=== PATIENT | female | born 1955 | race Caucasian/White ===

== ENCOUNTER 2018-05-03 15:18 | Emergency (ER) | payer MEDICARE, MEDICAID ==
[~2018-05-03] VITALS: Ht 172.7 cm; Wt 64.2 kg
[~2018-05-03 15:18] MED LIST: ALBU18HF2 INH; ALBU8.5H8 IH; BUDE90AE IH; CLON0.5T12 PO; CYCL-1 PO; ESOM40CA30 PO; FENT1PAT10 TP; GUAI100L97 PO; HYDR-565 PO; LEVO100T9 PO; MIRT30TA8 PO; PRE5T CORPAK; QUET400T PO; QUET50TA PO; TRAM50TA2 PO; [UNRECOGNIZED DRUG - CODE] IM
[2018-05-03 15:30] VITALS: BP 146/74
[2018-05-03] MEDS ORDERED: CYCL5TAB14 PO (16:09)
== END 2018-05-03 16:18 | disposition home or self-care (01) ==
LOC: ER 15:18
DX: M54.2 Cervicalgia (principal); J44.9 Chronic obstructive pulmonary disease, unspecified; Z90.49 Acquired absence of other specified parts of digestive tract; Z90.710 Acquired absence of both cervix and uterus; Z56.0 Unemployment, unspecified; Z88.6 Allergy status to analgesic agent
CPT/HCPCS: 99283

== ENCOUNTER 2018-12-12 19:59 | Inpatient (IN) | payer MEDICARE, MEDICAID ==
[~2018-12-12] VITALS: Ht 172.7 cm; Wt 64.5 kg
[~2018-12-12 19:59] MED LIST changes: +CYCL5TAB14 PO; -ESOM40CA30 PO; +ESOM40CA49 PO; +HYDR-4353 PO; -HYDR-565 PO
[2018-12-12 20:51] LABS: BASOPHILS % (AUTO) 0.3 % (0-1); EOSINOPHILS # (AUTO) 0.1 X10'3 (0-0.9); EOSINOPHILS % (AUTO) 0.6 % (0-6); HEMATOCRIT 40.5 % (35.0-45.0); HEMOGLOBIN 13.6 g/dl (12.0-16.0); LYMPHOCYTES # (AUTO) 2.2 X10'3 (1.1-4.8); LYMPHOCYTES % (AUTO) 22.7 % (21-51); MEAN CORPUSCULAR HEMOGLOBIN 31.5 PG (27.0-31.0); MEAN CORPUSCULAR HGB CONC 33.6 g/dL (33.0-36.5); MEAN CORPUSCULAR VOLUME 93.8 FL (78-98); MEAN PLATELET VOLUME 8.4 FL (7.4-10.4); MONOCYTES # (AUTO) 0.5 X10'3 (0-0.9); MONOCYTES % (AUTO) 5.4 % (2-12); NEUTROPHILS # (AUTO) 6.8 X10'3 (1.8-7.7); PLATELET COUNT 274 X10'3 (140-440); RED BLOOD COUNT 4.32 X10'6 (4.20-5.60); RED CELL DISTRIBUTION WIDTH 13.7 % (11.5-14.5); WHITE BLOOD COUNT 9.5 X10'3 (4.5-11.0)
[2018-12-12 20:52] LABS: CLARITY,URINE CLOUDY (Clear); COLOR,URINE YELLOW (Yellow); GLUCOSE, URINE NEGATIVE (Neg); KETONES,URINE TRACE mg/dl (Neg); LEUKOCYTE ESTERASE ,URINE SMALL (Neg); NITRITES, URINE POSITIVE (Neg); OCCULT BLOOD,URINE NEGATIVE (Neg); PROTEIN,URINE 30 mg/dl (Neg); UROBILINOGEN,URINE 0.2 E.U/dL (0.2-1.0)
[2018-12-12 20:53] LABS: UA COLLECTION TYPE CLN CATCH MIDSTREAM
[2018-12-12 21:01] LABS: BACTERIA,URINE 4+ /HPF (Neg); MUCUS STRANDS NONE SEEN /LPF (Neg); RBC,URINE NONE SEEN /HPF (0-2); SQUAMOUS EPITHELIAL CELL,UR MANY /LPF (FEW); WBC,URINE 30-50 /HPF (0-4)
[2018-12-12 21:12] LABS: ALANINE AMINOTRANSFERASE 14 U/L (12-78); ALBUMIN 3.5 G/DL (3.4-5.0); ALBUMIN/GLOBULIN RATIO 0.9 (1.1-1.5); ALKALINE PHOSPHATASE 112 IU/L (46-116); ANION GAP 9 (8-16); ASPARTATE AMINO TRANSFERASE 14 U/L (10-37); BILIRUBIN,TOTAL 0.3 MG/DL (0.1-1.0); BLOOD UREA NITROGEN 12 MG/DL (7-18); BUN/CREATININE RATIO 12.6 (6.6-38.0); CHLORIDE 102 MMOL/L (99-107); CREATININE 0.95 MG/DL (0.40-0.90); GLUCOSE 138 MG/DL (70-104); POTASSIUM 3.6 MMOL/L (3.5-5.1); SODIUM 138 MMOL/L (135-145); TOTAL CARBON DIOXIDE 27.2 MMOL/L (24-32); TOTAL PROTEIN 7.6 G/DL (6.4-8.2); eGFR 60 ML/MIN
[2018-12-12] MEDS ORDERED: ondansetron/PF 4mg/2ml inj IV ONE (21:45)
[2018-12-12] MEDS ORDERED: normal saline 1000ML IV soln IVB ONE (21:45)
[2018-12-12] MEDS ORDERED: fentaNYL/PF 50MCG/1 ML 2ML syringe IV ONE (23:00)
[2018-12-12] MEDS ORDERED: UMEC1DIS (23:11)
[2018-12-12] MEDS ORDERED: CLON-529 PO (23:11)
[2018-12-12] MEDS ORDERED: PRAZ2CAP2 PO (23:11)
[2018-12-12] MEDS ORDERED: ATOR10TA87 PO (23:11)
--- NOTE | 2018-12-12 23:18 | NUR ---
SPOKE TO DR BAKER. NO NG TUBE EXPECTED DUE TO NO N/V
--- NOTE | 2018-12-12 23:40 | NUR ---
SPOKE TO DR BAKER, NO ANTIBIOTICS EXPECTED DUE TO DIRTY CATCH
[2018-12-13] MEDS ORDERED: HYDROcodone/acetaminophen 5mg/325mg tablet PO PRN
[2018-12-13] MEDS ORDERED: magnesium hydroxide 30ml (MOM) UD suspension PO PRN
[2018-12-13] MEDS ORDERED: acetaminophen 325mg tablet PO PRN ×2
[2018-12-13] MEDS ORDERED: HYDROmorphone 2mg/ml vial IV PRN
[2018-12-13] MEDS ORDERED: mag hydrox/Alum hydrox/simeth 30ml oral suspension PO PRN
[2018-12-13] MEDS ORDERED: HYDROcodone/acetaminophen 10/325mg tab PO PRN
[2018-12-13] MEDS ORDERED: albuterol 2.5 MG/3 ML nebule NEB PRN (00:05)
[2018-12-13] MEDS: piperacillin/tazo 4.5gm/100ml 100 ML IV SCH ×4 (00:13→23:23)
[2018-12-13] MEDS: normal saline 1000ml 1,000 ML IV SCH ×4 (00:13→23:30)
[2018-12-13] MEDS ORDERED: HYDROmorphone 1 mg/ml syringe IV ONE (01:00)
[2018-12-13] MEDS ORDERED: quetiapine 100mg tablet PO STA (01:09)
--- NOTE | 2018-12-13 01:10 | NUR ---
verbal from dr barrios for one time dose of night meds
[2018-12-13] MEDS: ondansetron/PF 4mg/2ml inj IV PRN ×2 (01:15→20:38)
[2018-12-13] MEDS: clonazePAM 0.5mg tablet PO PRN ×2 (01:16→13:48)
--- NOTE | 2018-12-13 04:59 | NUR ---
Received report from Ludwin DE LA GARZA RN. Patient to follow shortly.
--- NOTE | 2018-12-13 05:10 | NUR ---
Patient arrived to floor via W/C. Situated in bed and oriented to room.
[2018-12-13 05:30] VITALS: BP 101/49
[2018-12-13 06:20] LABS: BASOPHILS % (AUTO) 0.5 % (0-1); EOSINOPHILS # (AUTO) 0.1 X10'3 (0-0.9); EOSINOPHILS % (AUTO) 0.8 % (0-6); HEMATOCRIT 38.1 % (35.0-45.0); HEMOGLOBIN 12.8 g/dl (12.0-16.0); LYMPHOCYTES # (AUTO) 1.6 X10'3 (1.1-4.8); LYMPHOCYTES % (AUTO) 22.4 % (21-51); MEAN CORPUSCULAR HEMOGLOBIN 31.9 PG (27.0-31.0); MEAN CORPUSCULAR HGB CONC 33.6 g/dL (33.0-36.5); MEAN CORPUSCULAR VOLUME 94.9 FL (78-98); MEAN PLATELET VOLUME 8.3 FL (7.4-10.4); MONOCYTES # (AUTO) 0.5 X10'3 (0-0.9); MONOCYTES % (AUTO) 7.5 % (2-12); NEUTROPHILS # (AUTO) 4.8 X10'3 (1.8-7.7); NEUTROPHILS % (AUTO) 68.8 % (42-75); PLATELET COUNT 227 X10'3 (140-440); RED BLOOD COUNT 4.01 X10'6 (4.20-5.60); RED CELL DISTRIBUTION WIDTH 14.1 % (11.5-14.5); WHITE BLOOD COUNT 6.9 X10'3 (4.5-11.0)
[2018-12-13 06:36] LABS: ANION GAP 6 (8-16); BLOOD UREA NITROGEN 11 MG/DL (7-18); BUN/CREATININE RATIO 13.6 (6.6-38.0); CALCIUM 8.2 MG/DL (8.5-10.1); CHLORIDE 106 MMOL/L (99-107); CREATININE 0.81 MG/DL (0.40-0.90); GLUCOSE 108 MG/DL (70-104); MAGNESIUM 1.9 MG/DL (1.5-2.4); POTASSIUM 3.9 MMOL/L (3.5-5.1); SODIUM 140 MMOL/L (135-145); TOTAL CARBON DIOXIDE 27.7 MMOL/L (24-32); eGFR 72 ML/MIN
--- NOTE | 2018-12-13 06:41 | NUR ---
Patient in room [facility]. I have received report from KELSEA Demarco and had the opportunity to ask questions and assume patient care.
--- NOTE | 2018-12-13 06:54 | NUR ---
Problems reprioritized. Patient report given, questions answered & plan of care reviewed with Lisa ENAMORADO.
[2018-12-13 07:20] VITALS: BP 102/54
[2018-12-13] MEDS ORDERED: enoxaparin 40mg/0.4ml syringe SUBCUT SCH (08:00)
[2018-12-13] MEDS ORDERED: quetiapine 100mg tablet PO SCH ×2 (08:00→21:00)
[2018-12-13] MEDS ORDERED: levoTHYROXINE 100mcg tablet PO SCH (08:00)
[2018-12-13] MEDS ORDERED: atorvastatin 10mg tablet PO SCH (08:00)
[2018-12-13] MEDS ORDERED: OXYGEN INH (08:38)
[2018-12-13] MEDS ORDERED: HYDROmorphone inj. 0.5 MG/0.5 ML DISP.SYRIN IV PRN (09:10)
[2018-12-13] MEDS: cyclobenzaprine 10mg tablet PO SCH ×3 (09:16→20:38)
[2018-12-13 11:00] VITALS: BP 116/55
[2018-12-13] MEDS: HYDROmorphone inj. 0.5 MG/0.5 ML DISP.SYRIN IV PRN ×3 (13:37→22:03)
[2018-12-13] MEDS ORDERED: Permethrin Cream 60gm TP ONE (14:00)
--- NOTE | 2018-12-13 18:46 | NUR ---
Problems reprioritized. Patient report given, questions answered & plan of care reviewed with KELSEA Aguirre.
[2018-12-13 18:50] VITALS: BP 137/91
[2018-12-13] MEDS ORDERED: lactobacillus rhamnosus 10,000 MMU CELLS/CAPSULE PO SCH (20:00)
[2018-12-13] MEDS ORDERED: diatr meglu/diatrizoate 30ml oral sol.-(3 dose) bottle PO SCH (21:00)
[2018-12-13] MEDS ORDERED: prazosin 1mg capsule PO SCH (21:00)
[2018-12-13] MEDS ORDERED: mirtazapine 15mg tablet PO SCH (21:00)
[2018-12-13] MEDS ORDERED: cloNIDine 0.1 mg tablet PO SCH (21:00)
[2018-12-14] VITALS: BP 136/72
[2018-12-14] MEDS: HYDROmorphone inj. 0.5 MG/0.5 ML DISP.SYRIN IV PRN (03:17)
[2018-12-14 05:57] LABS: BASOPHILS % (AUTO) 0.6 % (0-1); EOSINOPHILS # (AUTO) 0.1 X10'3 (0-0.9); EOSINOPHILS % (AUTO) 0.7 % (0-6); HEMATOCRIT 37.7 % (35.0-45.0); HEMOGLOBIN 12.8 g/dl (12.0-16.0); LYMPHOCYTES # (AUTO) 1.2 X10'3 (1.1-4.8); LYMPHOCYTES % (AUTO) 14.2 % (21-51); MEAN CORPUSCULAR HEMOGLOBIN 32.1 PG (27.0-31.0); MEAN CORPUSCULAR HGB CONC 33.8 g/dL (33.0-36.5); MEAN CORPUSCULAR VOLUME 94.9 FL (78-98); MEAN PLATELET VOLUME 8.7 FL (7.4-10.4); MONOCYTES # (AUTO) 0.6 X10'3 (0-0.9); MONOCYTES % (AUTO) 6.9 % (2-12); NEUTROPHILS # (AUTO) 6.3 X10'3 (1.8-7.7); NEUTROPHILS % (AUTO) 77.6 % (42-75); PLATELET COUNT 234 X10'3 (140-440); RED BLOOD COUNT 3.97 X10'6 (4.20-5.60); WHITE BLOOD COUNT 8.1 X10'3 (4.5-11.0)
--- NOTE | 2018-12-14 06:08 | NUR ---
Patient in room [facility]. I have received report from KELSEA Aguirre and had the opportunity to ask questions and assume patient care.
--- NOTE | 2018-12-14 06:19 | NUR ---
Problems reprioritized. Patient report given, questions answered & plan of care reviewed with LELO. Addendum: 12/14/18 at 0619 by Salazar Núñez RN Amended: Links added.
[2018-12-14 06:24] LABS: ANION GAP 11 (8-16); BLOOD UREA NITROGEN 10 MG/DL (7-18); BUN/CREATININE RATIO 12.8 (6.6-38.0); CALCIUM 8.2 MG/DL (8.5-10.1); CHLORIDE 103 MMOL/L (99-107); CREATININE 0.78 MG/DL (0.40-0.90); GLUCOSE 91 MG/DL (70-104); MAGNESIUM 1.9 MG/DL (1.5-2.4); POTASSIUM 3.7 MMOL/L (3.5-5.1); SODIUM 138 MMOL/L (135-145); TOTAL CARBON DIOXIDE 24.3 MMOL/L (24-32); eGFR 75 ML/MIN
--- NOTE | 2018-12-14 06:53 | NUR ---
Patient left AMA. Dr. Holland informed. NG tube and PIV removed with cannula intact. Patient stated that she "feels the NG tube did the trick and she is ready to go." Patient was educated on the importance of staying due to unfinished tests such as her UA and she has a CT scheduled for today. Patient stated that those won't be needed because she is feeling fine. Patient also stated, "I won't need anymore pain medication because I am just sore now, it isn't cramping anymore. Patient was alert and oriented at time of leaving.
[2018-12-14] MEDS ORDERED: levoTHYROXINE 112mcg tablet PO SCH (08:00)
[2018-12-14] MEDS ORDERED: pneumococcal 23-VAL P-sac vacc 25 mcg/0.5ml vial IMVAC ONE (10:00)
[2018-12-20] MEDS ORDERED: Permethrin Cream 60gm TP PRN (10:00)
== END 2018-12-14 06:54 | disposition left against medical advice (07) | DRG 389 ==
LOC: ER 20:00 → SUR 3N 12-13 05:40 → CMPBEDREQ 12-13 05:54
PROVIDERS: ADMIT Hospitalist; ATTEND Family Medicine
DX: K56.609 Unspecified intestinal obstruction, unspecified as to partial versus complete obstruction (principal); N39.0 Urinary tract infection, site not specified; I10 Essential (primary) hypertension; E03.9 Hypothyroidism, unspecified; E78.5 Hyperlipidemia, unspecified; J45.909 Unspecified asthma, uncomplicated; F17.200 Nicotine dependence, unspecified, uncomplicated; J43.9 Emphysema, unspecified; F41.9 Anxiety disorder, unspecified; F32.9 Major depressive disorder, single episode, unspecified; Z53.21 Procedure and treatment not carried out due to patient leaving prior to being seen by health care provider; Z90.710 Acquired absence of both cervix and uterus; Z90.49 Acquired absence of other specified parts of digestive tract; Z56.0 Unemployment, unspecified; Z88.5 Allergy status to narcotic agent; Z79.899 Other long term (current) drug therapy; Z85.41 Personal history of malignant neoplasm of cervix uteri
CPT/HCPCS: 36415; 74176; 80048; 80053; 81001; 83735; 84443; 85025; 85610; 87070; 87088; 94760; 96361; 96374; 96375; 99285; G0378; J1170; J1650; J2405; J2543; J3010; J7030; Q9963

== ENCOUNTER 2019-03-09 06:17 | Emergency (ER) | payer MEDICARE, MEDICAID ==
[~2019-03-09] VITALS: Ht 172.7 cm; Wt 65.0 kg
[~2019-03-09 06:17] MED LIST changes: -ALBU8.5H8 IH; +ATOR10TA87 PO; -BUDE90AE IH; +CLON-529 PO; -CYCL5TAB14 PO; -ESOM40CA49 PO; -FENT1PAT10 TP; -GUAI100L97 PO; -HYDR-4353 PO; +OXYGEN INH; +PRAZ2CAP2 PO; -PRE5T CORPAK; -TRAM50TA2 PO; +UMEC1DIS; -[UNRECOGNIZED DRUG - CODE] IM
[2019-03-09] MEDS ORDERED: methylPREDNISolone sod succ 125mg/2ml vial IV ONE (06:35)
[2019-03-09] MEDS ORDERED: ipratropium/albuterol 3ml nebule NEB ONE (06:35)
[2019-03-09 07:13] LABS: BASOPHILS % (AUTO) 0.3 % (0-1); EOSINOPHILS % (AUTO) 0.6 % (0-6); HEMATOCRIT 45.5 % (35.0-45.0); HEMOGLOBIN 15.1 g/dl (12.0-16.0); LYMPHOCYTES # (AUTO) 1.2 X10'3 (1.1-4.8); LYMPHOCYTES % (AUTO) 14.9 % (21-51); MEAN CORPUSCULAR HEMOGLOBIN 31.8 PG (27.0-31.0); MEAN CORPUSCULAR HGB CONC 33.2 g/dL (33.0-36.5); MEAN CORPUSCULAR VOLUME 95.8 FL (78-98); MEAN PLATELET VOLUME 8.6 FL (7.4-10.4); MONOCYTES # (AUTO) 0.7 X10'3 (0-0.9); MONOCYTES % (AUTO) 8.8 % (2-12); NEUTROPHILS # (AUTO) 6.2 X10'3 (1.8-7.7); NEUTROPHILS % (AUTO) 75.4 % (42-75); PLATELET COUNT 289 X10'3 (140-440); RED BLOOD COUNT 4.75 X10'6 (4.20-5.60); RED CELL DISTRIBUTION WIDTH 14.4 % (11.5-14.5); WHITE BLOOD COUNT 8.3 X10'3 (4.5-11.0)
[2019-03-09] MEDS ORDERED: methylPREDNISolone sod succ 125mg/2ml vial IM ONE (07:15)
[2019-03-09 07:31] LABS: ALANINE AMINOTRANSFERASE 14 U/L (12-78); ALBUMIN 3.9 G/DL (3.4-5.0); ALBUMIN/GLOBULIN RATIO 0.8 (1.1-1.5); ALKALINE PHOSPHATASE 115 IU/L (46-116); ANION GAP 9 (8-16); ASPARTATE AMINO TRANSFERASE 10 U/L (10-37); BILIRUBIN,TOTAL 0.2 MG/DL (0.1-1.0); BLOOD UREA NITROGEN 12 MG/DL (7-18); BUN/CREATININE RATIO 16.7 (6.6-38.0); CALCIUM 9.5 MG/DL (8.5-10.1); CHLORIDE 104 MMOL/L (99-107); CREATININE 0.72 MG/DL (0.40-0.90); GLUCOSE 108 MG/DL (70-104); POTASSIUM 4.2 MMOL/L (3.5-5.1); SODIUM 141 MMOL/L (135-145); TOTAL PROTEIN 8.8 G/DL (6.4-8.2); eGFR 82 ML/MIN
--- NOTE | 2019-03-09 07:50 | NUR ---
RT to room, paged over head by staff.
[2019-03-09 07:56] LABS: PARTIAL THROMBOPLASTIN TIME 30 SECONDS (22-32)
[2019-03-09] MEDS ORDERED: ALBU8.5H8 INH (08:16)
[2019-03-09] MEDS ORDERED: PRED20TA PO (08:16)
[2019-03-09] MEDS ORDERED: LEVO750T21 PO (08:16)
[2019-03-09 08:19] VITALS: BP 130/112
== END 2019-03-09 08:30 | disposition home or self-care (01) ==
LOC: ER 06:18
DX: J44.1 Chronic obstructive pulmonary disease with (acute) exacerbation (principal); J20.9 Acute bronchitis, unspecified; F41.9 Anxiety disorder, unspecified; F32.9 Major depressive disorder, single episode, unspecified; F17.200 Nicotine dependence, unspecified, uncomplicated; Z56.0 Unemployment, unspecified; Z85.89 Personal history of malignant neoplasm of other organs and systems; Z90.49 Acquired absence of other specified parts of digestive tract; Z90.710 Acquired absence of both cervix and uterus; Z98.890 Other specified postprocedural states; Z88.5 Allergy status to narcotic agent; Z79.899 Other long term (current) drug therapy
CPT/HCPCS: 36415; 71045; 80053; 83605; 83880; 84484; 85025; 85610; 85730; 87040; 93005; 94640; 96372; 99284; J2930

== ENCOUNTER 2019-05-26 10:27 | Emergency (ER) | payer MEDICARE, MEDICAID ==
[~2019-05-26] VITALS: Ht 172.7 cm; Wt 64.0 kg
[~2019-05-26 10:27] MED LIST changes: +ALBU8.5H8 INH
[2019-05-26 10:34] VITALS: BP 139/74
[2019-05-26] MEDS ORDERED: IBUP-1984 PO (11:41)
[2019-05-26] MEDS ORDERED: CYCL-1 PO (11:41)
== END 2019-05-26 12:03 | disposition home or self-care (01) ==
LOC: ER 10:28
DX: S16.1XXA Strain of muscle, fascia and tendon at neck level, initial encounter (principal); J44.9 Chronic obstructive pulmonary disease, unspecified; F41.9 Anxiety disorder, unspecified; F32.9 Major depressive disorder, single episode, unspecified; F17.200 Nicotine dependence, unspecified, uncomplicated; Z90.49 Acquired absence of other specified parts of digestive tract; Z90.710 Acquired absence of both cervix and uterus; Z98.890 Other specified postprocedural states; Z56.0 Unemployment, unspecified; Z88.5 Allergy status to narcotic agent; Z79.899 Other long term (current) drug therapy; X58.XXXA Exposure to other specified factors, initial encounter; Y93.89 Activity, other specified; Y92.89 Other specified places as the place of occurrence of the external cause; Y99.8 Other external cause status
CPT/HCPCS: 99283

== ENCOUNTER 2019-08-31 22:54 | Inpatient (IN) | payer MEDICARE, MEDICAID ==
[~2019-08-31] VITALS: Ht 172.7 cm; Wt 68.1 kg
[~2019-08-31 22:54] MED LIST changes: -CLON0.5T12 PO; +CLON0.5T4 PO
[2019-08-31] MEDS ORDERED: morphine 4 MG/ML inj SYRINge IV ONE (23:05)
[2019-08-31] MEDS ORDERED: ondansetron/PF 4mg/2ml inj IV ONE (23:05)
[2019-08-31] MEDS ORDERED: normal saline 1000ml 1,000 ML IV ONE (23:15)
[2019-08-31 23:25] LABS: BASOPHILS % (AUTO) 0.2 % (0-1); EOSINOPHILS # (AUTO) 0.1 X10'3 (0-0.9); EOSINOPHILS % (AUTO) 0.6 % (0-6); HEMATOCRIT 41.4 % (35.0-45.0); LYMPHOCYTES # (AUTO) 2.6 X10'3 (1.1-4.8); LYMPHOCYTES % (AUTO) 17.4 % (21-51); MEAN CORPUSCULAR HEMOGLOBIN 31.5 PG (27.0-31.0); MEAN CORPUSCULAR HGB CONC 33.9 g/dL (33.0-36.5); MEAN PLATELET VOLUME 8.3 FL (7.4-10.4); MONOCYTES # (AUTO) 0.7 X10'3 (0-0.9); MONOCYTES % (AUTO) 5.1 % (2-12); NEUTROPHILS # (AUTO) 11.3 X10'3 (1.8-7.7); NEUTROPHILS % (AUTO) 76.7 % (42-75); PLATELET COUNT 309 X10'3 (140-440); RED BLOOD COUNT 4.46 X10'6 (4.20-5.60); RED CELL DISTRIBUTION WIDTH 14.4 % (11.5-14.5); WHITE BLOOD COUNT 14.8 X10'3 (4.5-11.0)
[2019-08-31 23:37] LABS: ALANINE AMINOTRANSFERASE 18 U/L (12-78); ALBUMIN 3.7 G/DL (3.4-5.0); ALBUMIN/GLOBULIN RATIO 0.9 (1.1-1.5); ALKALINE PHOSPHATASE 118 IU/L (46-116); ANION GAP 4 (8-16); ASPARTATE AMINO TRANSFERASE 10 U/L (10-37); BILIRUBIN,TOTAL 0.2 MG/DL (0.1-1.0); BLOOD UREA NITROGEN 20 MG/DL (7-18); BUN/CREATININE RATIO 19.2 (6.6-38.0); CALCIUM 8.9 MG/DL (8.5-10.1); CHLORIDE 103 MMOL/L (99-107); CREATININE 1.04 MG/DL (0.40-0.90); GLUCOSE 143 MG/DL (70-104); LIPASE 121 U/L (73-393); POTASSIUM 3.9 MMOL/L (3.5-5.1); SODIUM 139 MMOL/L (135-145); eGFR 54 ML/MIN
[2019-09-01 00:23] LABS: URINE HCG NEGATIVE (NEG)
[2019-09-01] MEDS ORDERED: piperacillin/tazo 3.375gm/50ml 50 ML IV ONE (00:35)
[2019-09-01] MEDS ORDERED: morphine 4 MG/ML inj SYRINge IV ONE (00:35)
[2019-09-01] MEDS ORDERED: LIDOcaine 2% 10ml TOPICAL JELLY (Urojet) MM ONE (00:45)
[2019-09-01 00:55] LABS: CLARITY,URINE SLIGHTLY CLOUDY (Clear); COLOR,URINE YELLOW (Yellow); GLUCOSE, URINE NEGATIVE (Neg); KETONES,URINE NEGATIVE (Neg); LEUKOCYTE ESTERASE ,URINE SMALL (Neg); NITRITES, URINE NEGATIVE (Neg); OCCULT BLOOD,URINE TRACE-INTACT (Neg); PROTEIN,URINE NEGATIVE (Neg); UA COLLECTION TYPE CLN CATCH MIDSTREAM; UROBILINOGEN,URINE 0.2 E.U/dL (0.2-1.0)
[2019-09-01 00:58] LABS: BACTERIA,URINE 1+ /HPF (Neg); MUCUS STRANDS MODERATE /LPF (Neg); RBC,URINE 0-2 /HPF (0-2); SQUAMOUS EPITHELIAL CELL,UR MODERATE /LPF (FEW)
[2019-09-01] MEDS ORDERED: magnesium 2GM in 50ml NS 50 ML IV PRN (01:20)
[2019-09-01] MEDS ORDERED: potassium Cl 20 mEq SR tablet PO PRN ×2 (01:20)
[2019-09-01] MEDS ORDERED: normal saline 1000ml 1,000 ML IV SCH (01:20)
[2019-09-01] MEDS ORDERED: potassium CL 10mEq/100ml bag 100 ML IV PRN ×2 (01:20)
[2019-09-01] MEDS ORDERED: magnesium 4gm in 100ml NS 100 ML IV PRN (01:20)
[2019-09-01] MEDS ORDERED: magnesium Cl slow-release 64mg tablet PO PRN (01:20)
[2019-09-01] MEDS ORDERED: ondansetron/PF 4mg/2ml inj IV PRN (01:20)
[2019-09-01] MEDS: morphine 2 MG/ML inj. syringe IV PRN ×2 (03:40→08:09)
[2019-09-01 05:30] VITALS: BP 144/60
--- NOTE | 2019-09-01 06:10 | NUR ---
Report given Mariama ALANIS
--- NOTE | 2019-09-01 06:10 | NUR ---
Patient in room [facility]. I have received report from Krystal Villaseñor RN and had the opportunity to ask questions and assume patient care.
--- NOTE | 2019-09-01 07:07 | NUR ---
Paged Dr. Dooley for something extra for nausea and vomiting. I replaced patient NG suction canister, it seems to be working but patient vomiting around NG tube. Addendum: 09/01/19 at 9349 by Brenda Fierro RN DISREGARD MESSAGE
--- NOTE | 2019-09-01 07:26 | NUR ---
Paged Dr. Hinkle for nausea meds
[2019-09-01] MEDS ORDERED: proCHLORperazine 10 MG/2 ml inj IV PRN (07:35)
[2019-09-01] MEDS ORDERED: proCHLORperazine 10 MG/2 ml inj IV ONE (07:35)
[2019-09-01] MEDS ORDERED: CefTRIAXone/D5W-Rocephin 1gm 50 ML IV SCH (08:00)
[2019-09-01] MEDS ORDERED: K and/or MAG REPLACEMENT MC SCH (08:00)
[2019-09-01] MEDS ORDERED: normal saline 500ml IV soln 1,000 ML IV ONE (09:15)
[2019-09-01 10:00] VITALS: BP 126/55
[2019-09-01 10:45] LABS: BASOPHILS # (AUTO) 0.1 X10'3 (0-0.2); BASOPHILS % (AUTO) 0.4 % (0-1); EOSINOPHILS % (AUTO) 0.3 % (0-6); HEMATOCRIT 38.2 % (35.0-45.0); LYMPHOCYTES # (AUTO) 1.8 X10'3 (1.1-4.8); LYMPHOCYTES % (AUTO) 12.6 % (21-51); MEAN CORPUSCULAR HEMOGLOBIN 31.4 PG (27.0-31.0); MEAN CORPUSCULAR VOLUME 92.3 FL (78-98); MEAN PLATELET VOLUME 8.4 FL (7.4-10.4); MONOCYTES # (AUTO) 0.8 X10'3 (0-0.9); MONOCYTES % (AUTO) 5.4 % (2-12); NEUTROPHILS # (AUTO) 11.7 X10'3 (1.8-7.7); NEUTROPHILS % (AUTO) 81.3 % (42-75); PLATELET COUNT 286 X10'3 (140-440); RED BLOOD COUNT 4.15 X10'6 (4.20-5.60); RED CELL DISTRIBUTION WIDTH 14.1 % (11.5-14.5); WHITE BLOOD COUNT 14.4 X10'3 (4.5-11.0)
--- NOTE | 2019-09-01 10:48 | NUR ---
PAGER ID: [phone] MESSAGE: Patient Amaya Cunningham said she is going to leave ama right now and wants the ng tube out. Mariama [phone] (102 character message out of a maximum of [phone])
[2019-09-01 10:59] LABS: ALANINE AMINOTRANSFERASE 35 U/L (12-78); ALBUMIN 3.1 G/DL (3.4-5.0); ALBUMIN/GLOBULIN RATIO 0.8 (1.1-1.5); ALKALINE PHOSPHATASE 134 IU/L (46-116); ANION GAP 6 (8-16); ASPARTATE AMINO TRANSFERASE 33 U/L (10-37); BILIRUBIN,TOTAL 0.2 MG/DL (0.1-1.0); BLOOD UREA NITROGEN 18 MG/DL (7-18); BUN/CREATININE RATIO 22.5 (6.6-38.0); CALCIUM 7.6 MG/DL (8.5-10.1); CHLORIDE 104 MMOL/L (99-107); GLUCOSE 105 MG/DL (70-104); SODIUM 140 MMOL/L (135-145); TOTAL CARBON DIOXIDE 29.9 MMOL/L (24-32); TOTAL PROTEIN 6.9 G/DL (6.4-8.2); eGFR 73 ML/MIN
--- NOTE | 2019-09-01 11:00 | NUR ---
Dr. Hinkle called that patient is leaving ama. She said she feels better and like the bowel obstruction is gone, and that she doesn't want surgery. I educated patient about what the plan regarding possible surgery and she said no still and that she was leaving. She was pleasant about it and I told her to come back if her problem starts worsening.
== END 2019-09-01 11:01 | disposition left against medical advice (07) | DRG 389 ==
LOC: ER 22:55 → ED HOLD 09-01 01:26 → ORTHO 4S 09-01 04:30 → CMPBEDREQ 09-01 04:30
PROVIDERS: ADMIT Internal Medicine; ATTEND Family Medicine
PROC: 0D9670Z Drainage of Stomach with Drainage Device, Via Natural or Artificial Opening (ICD-10-PCS; principal; 2019-09-01)
DX: K56.609 Unspecified intestinal obstruction, unspecified as to partial versus complete obstruction (principal); N39.0 Urinary tract infection, site not specified; E03.9 Hypothyroidism, unspecified; F41.8 Other specified anxiety disorders; Z53.29 Procedure and treatment not carried out because of patient's decision for other reasons; E78.5 Hyperlipidemia, unspecified; F17.210 Nicotine dependence, cigarettes, uncomplicated; I10 Essential (primary) hypertension; J43.9 Emphysema, unspecified; Z85.41 Personal history of malignant neoplasm of cervix uteri; Z90.710 Acquired absence of both cervix and uterus; Z90.49 Acquired absence of other specified parts of digestive tract; Z79.899 Other long term (current) drug therapy; Z91.19 Patient's noncompliance with other medical treatment and regimen
CPT/HCPCS: 36415; 74176; 80053; 81001; 81025; 83605; 83690; 84484; 85025; 87081; 87088; 93005; 96365; 96375; 96376; 99285; G0378; J0696; J0780; J2270; J2405; J2543; J7030; J7040

== ENCOUNTER 2019-09-01 23:08 | Inpatient (IN) | payer MEDICARE, MEDICAID ==
[~2019-09-01] VITALS: Ht 172.7 cm; Wt 68.0 kg
[~2019-09-01 23:08] MED LIST changes: -ALBU8.5H8 INH; -CYCL-1 PO; -UMEC1DIS
[2019-09-02] VITALS (16 sets, daily range): BP systolic 118–179; BP diastolic 62–101
[2019-09-02] MEDS ORDERED: magnesium 2GM in 50ml NS 50 ML IV PRN (00:25)
[2019-09-02] MEDS ORDERED: magnesium Cl slow-release 64mg tablet PO PRN (00:25)
[2019-09-02] MEDS ORDERED: potassium Cl 20 mEq SR tablet PO PRN ×2 (00:25)
[2019-09-02] MEDS ORDERED: morphine 2 MG/ML inj. syringe IV PRN (00:25)
[2019-09-02] MEDS ORDERED: potassium CL 10mEq/100ml bag 100 ML IV PRN ×2 (00:25)
[2019-09-02] MEDS ORDERED: magnesium 4gm in 100ml NS 100 ML IV PRN (00:25)
[2019-09-02] MEDS ORDERED: morphine 4 MG/ML inj SYRINge IV ONE (00:30)
[2019-09-02] MEDS ORDERED: ondansetron/PF 4mg/2ml inj IV ONE ×2 (00:30→04:30)
--- NOTE | 2019-09-02 00:30 | NUR ---
Dr. Thrasher at bedside for admission. Med rec completed. Pt now with PIV in place, no labs ordered. Pts' s.o. at bedside. Pt is polite and cooperative. She requests pain meds and nausea meds prior to placement of ng tube. Dr. Blair updated. Verbal receive for msiv and zofran.
[2019-09-02] MEDS: normal saline 1000ml 1,000 ML IV SCH ×3 (00:50→20:23)
--- NOTE | 2019-09-02 01:34 | NUR ---
ng placed. pt tolerated well. pts so just left for the night. pt awaiting ipa. given warm blankets.
[2019-09-02] MEDS ORDERED: albuterol 2.5 MG/3 ML nebule NEB PRN (03:10)
[2019-09-02] MEDS ORDERED: quetiapine 100mg tablet PO ONE (03:25)
[2019-09-02] MEDS: ondansetron/PF 4mg/2ml inj IV PRN ×3 (03:54→21:48)
[2019-09-02] MEDS: clonazePAM 0.5mg tablet PO PRN ×2 (04:01→21:58)
--- NOTE | 2019-09-02 05:39 | NUR ---
around 4 am pt reporting increasing nausea after receiving zofran. pt then had episode of emesis 250 cc's dark green thick and ng tub migrated out of place and required removal. replaced in left nare 16 f salum sump. Pt's bedding and gown changed.
--- NOTE | 2019-09-02 07:00 | NUR ---
Received report from ED RNKathie.
--- NOTE | 2019-09-02 07:25 | NUR ---
REPORT CALLED TO FLOOR, WHILE PACKAGING PT, FLOOR CALLED TO SAY THAT PTS ROOM WAS DIRTY AND NEEDED A VRE TERMINAL CLEAN. TRIM MECHANIC NOTIFIED.
[2019-09-02 07:56] LABS: BASOPHILS # (AUTO) 0.1 X10'3 (0-0.2); BASOPHILS % (AUTO) 0.5 % (0-1); EOSINOPHILS # (AUTO) 0.1 X10'3 (0-0.9); EOSINOPHILS % (AUTO) 0.5 % (0-6); HEMATOCRIT 39.8 % (35.0-45.0); HEMOGLOBIN 13.8 g/dl (12.0-16.0); LYMPHOCYTES # (AUTO) 1.3 X10'3 (1.1-4.8); LYMPHOCYTES % (AUTO) 12.7 % (21-51); MEAN CORPUSCULAR HEMOGLOBIN 31.7 PG (27.0-31.0); MEAN CORPUSCULAR HGB CONC 34.6 g/dL (33.0-36.5); MEAN CORPUSCULAR VOLUME 91.8 FL (78-98); MEAN PLATELET VOLUME 8.5 FL (7.4-10.4); MONOCYTES # (AUTO) 0.8 X10'3 (0-0.9); MONOCYTES % (AUTO) 7.2 % (2-12); NEUTROPHILS # (AUTO) 8.4 X10'3 (1.8-7.7); NEUTROPHILS % (AUTO) 79.1 % (42-75); PLATELET COUNT 294 X10'3 (140-440); RED BLOOD COUNT 4.33 X10'6 (4.20-5.60); RED CELL DISTRIBUTION WIDTH 14.4 % (11.5-14.5); WHITE BLOOD COUNT 10.7 X10'3 (4.5-11.0)
[2019-09-02] MEDS: levoTHYROXINE 100mcg tablet PO SCH (08:00)
--- NOTE | 2019-09-02 08:10 | NUR ---
PT STATES EVERY TIME SHE HAS THE MORPHINE, SHE VOMITS AND WOULD LIKE A DIFFERENT FORM OF PAIN RX. DR. MIRANDA PAGED.
[2019-09-02 08:18] LABS: ALANINE AMINOTRANSFERASE 32 U/L (12-78); ALBUMIN 3.3 G/DL (3.4-5.0); ALBUMIN/GLOBULIN RATIO 0.8 (1.1-1.5); ALKALINE PHOSPHATASE 157 IU/L (46-116); ANION GAP 5 (8-16); ASPARTATE AMINO TRANSFERASE 21 U/L (10-37); BILIRUBIN,TOTAL 0.5 MG/DL (0.1-1.0); BLOOD UREA NITROGEN 12 MG/DL (7-18); BUN/CREATININE RATIO 16.2 (6.6-38.0); CALCIUM 8.5 MG/DL (8.5-10.1); CHLORIDE 104 MMOL/L (99-107); CREATININE 0.74 MG/DL (0.40-0.90); GLUCOSE 115 MG/DL (70-104); MAGNESIUM 2.1 MG/DL (1.5-2.4); SODIUM 141 MMOL/L (135-145); TOTAL CARBON DIOXIDE 32.2 MMOL/L (24-32); TOTAL PROTEIN 7.3 G/DL (6.4-8.2); eGFR 80 ML/MIN
--- NOTE | 2019-09-02 08:50 | NUR ---
Pt arrived to room 346A from ED
[2019-09-02] MEDS: K and/or MAG REPLACEMENT MC SCH ×2 (09:19→20:00)
[2019-09-02] MEDS: CefTRIAXone/D5W-Rocephin 1gm 50 ML IV SCH (09:52)
[2019-09-02] MEDS: HYDROmorphone inj. 0.5 MG/0.5 ML DISP.SYRIN IV PRN ×3 (10:01→22:02)
[2019-09-02] MEDS ORDERED: ringers solution, lacted 1,000 ML IV SCH (16:06)
[2019-09-02] MEDS ORDERED: ondansetron/PF 4mg/2ml inj IV PRN (16:10)
[2019-09-02] MEDS ORDERED: meperidine/PF 25mg/ml syringe IV PRN ×2 (16:10)
[2019-09-02] MEDS ORDERED: proCHLORperazine 10 MG/2 ml inj IV PRN (16:10)
[2019-09-02] MEDS ORDERED: morphine 4 MG/ML inj SYRINge IV PRN ×2 (16:10)
--- NOTE | 2019-09-02 16:19 | NUR ---
Pt off the floor to OR
[2019-09-02] MEDS ORDERED: ipratropium/albuterol 3ml nebule NEB ONE (16:30)
[2019-09-02] MEDS ORDERED: midazolam 2 mg/2 ml injection ONE (16:44)
[2019-09-02] MEDS ORDERED: fentaNYL /PF 50mcg/ml 5ml ampule ONE (16:44)
[2019-09-02] MEDS ORDERED: LIDOcaine 2% (20mg/ml) 5ml vial ONE (16:45)
[2019-09-02] MEDS ORDERED: sevoflurane 250ml liquid IH ONE (16:45)
[2019-09-02] MEDS ORDERED: propofol inj 20 ML IV ONE (16:45)
[2019-09-02] MEDS ORDERED: glycopyrrolate 0.2mg/ml inj ONE (16:45)
[2019-09-02] MEDS ORDERED: neostigmine methylsulfate 1 MG/ML 10ml vial ONE (16:45)
[2019-09-02] MEDS ORDERED: hydrocortisone sod succ/PF 100mg/2ml inj. ONE (17:17)
[2019-09-02] MEDS ORDERED: rocuronium 10mg/ml inj IV ONE (17:17)
[2019-09-02] MEDS ORDERED: ceFOXitin 2 GM ADDVANTGE BAG 50 ML IV ONE (17:23)
[2019-09-02] MEDS ORDERED: labetalol 20mg/4ml (5mg/ml) syringe IV ONE (17:49)
--- NOTE | 2019-09-02 18:10 | NUR ---
Problems reprioritized. Patient report given, questions answered & plan of care reviewed with Veronique RN.
[2019-09-02] MEDS ORDERED: meperidine/PF 50mg/ml syringe ONE (18:33)
[2019-09-02] MEDS ORDERED: acetaminophen 1,000mg/100ml IV 100 ML IV ONE (18:37)
--- NOTE | 2019-09-02 19:10 | NUR ---
Received from OR via SURGICAL BED, accompanied by Anesthesiologist WILI and report given by Anesthesiolgist. PATIENT WITH ART LINE IN RIGHT UE WELL 18G PIV IN RIGHT AC DEANDRE LR AT 100. NGT PRESENT, DUKE CATHETER WITH CLEAR YELLOW URINE WITHIN ATRIUM. MIDLINE ABDOMINAL DRESSING THAT IS CDI. SCDS DONNED AND VSS AT THIS TIME. Addendum: 09/02/19 at 1914 by Maurice Jeffries RN Amended: Links added.
[2019-09-02] MEDS: ipratropium/albuterol 3ml nebule NEB SCH ×2 (19:16→23:00)
[2019-09-02 19:36] LABS: ABG HCO3 24.8 mmol/L (22.0-26.0); ABG OXYGEN SATURATION 94.8 % (95-98); ABG PCO2 (T) 55.7 mmHg (35.0-45.0); ABG PH (T) 7.267 (7.350-7.450); FCOHb 0.9 % (0.5-1.5); FMetHb 0.3 % (0.3-1.12); FO2Hb 93.7 % (94-100); MINUTE VOLUME 7 L/min; PATIENT TEMPERATURE 37.1; PEEP 5 cm H2O; RESPIRATORY RATE (OBSERVED) 10 b/min; TOTAL HEMOGLOBIN 14.6 G/dl (12.0-16.0)
--- NOTE | 2019-09-02 19:42 | NUR ---
PT EXTUBATED WITHOUT COMPLICATIIONS IS SPONTAINIOUSLY BREATHING. VITALS STABLE.
[2019-09-02] MEDS: meperidine/PF 25mg/ml syringe IV PRN ×2 (20:10→20:23)
--- NOTE | 2019-09-02 20:30 | NUR ---
Report called to receiving nurse. Transferred via BED Belongings . Special Issues communicated to receiving nurse. AWAKE AND ORIENTED. VITALS STABLE. DRESSING DI. STATES PAIN IMPROVING. TO SURGICAL RM 347A AT THIS TIME.
[2019-09-02] MEDS: mirtazapine 15mg tablet PO SCH (21:00)
[2019-09-02] MEDS: prazosin 1mg capsule PO SCH (21:00)
[2019-09-02] MEDS: quetiapine 100mg tablet PO SCH ×2 (21:00→21:58)
[2019-09-02] MEDS: cloNIDine 0.1 mg tablet PO SCH (21:00)
[2019-09-03] VITALS: BP 130/63
[2019-09-03] MEDS ORDERED: albuterol 2.5 MG/3 ML nebule NEB SCH
[2019-09-03 00:15] VITALS: BP 125/92
[2019-09-03] MEDS: HYDROmorphone 1 mg/ml syringe IV PRN ×9 (01:30→20:35)
[2019-09-03] MEDS: normal saline 1000ml 1,000 ML IV SCH ×3 (01:42→23:40)
[2019-09-03] MEDS: ipratropium/albuterol 3ml nebule NEB SCH ×6 (03:09→23:54)
[2019-09-03 04:00] VITALS: BP 140/77
[2019-09-03] MEDS: ondansetron/PF 4mg/2ml inj IV PRN ×2 (05:18→12:29)
[2019-09-03 06:29] LABS: BASOPHILS # (AUTO) 0.1 X10'3 (0-0.2); BASOPHILS % (AUTO) 0.4 % (0-1); EOSINOPHILS % (AUTO) 0 % (0-6); HEMATOCRIT 39.3 % (35.0-45.0); HEMOGLOBIN 13.3 g/dl (12.0-16.0); LYMPHOCYTES # (AUTO) 1.3 X10'3 (1.1-4.8); LYMPHOCYTES % (AUTO) 9.6 % (21-51); MEAN CORPUSCULAR HEMOGLOBIN 31.6 PG (27.0-31.0); MEAN CORPUSCULAR HGB CONC 33.9 g/dL (33.0-36.5); MEAN CORPUSCULAR VOLUME 93.4 FL (78-98); MEAN PLATELET VOLUME 8.9 FL (7.4-10.4); MONOCYTES # (AUTO) 1.2 X10'3 (0-0.9); MONOCYTES % (AUTO) 8.9 % (2-12); NEUTROPHILS # (AUTO) 10.6 X10'3 (1.8-7.7); NEUTROPHILS % (AUTO) 81.1 % (42-75); PLATELET COUNT 285 X10'3 (140-440); RED CELL DISTRIBUTION WIDTH 14.4 % (11.5-14.5); WHITE BLOOD COUNT 13.1 X10'3 (4.5-11.0)
[2019-09-03 06:43] LABS: ALBUMIN 2.9 G/DL (3.4-5.0); ANION GAP 9 (8-16); BLOOD UREA NITROGEN 13 MG/DL (7-18); BUN/CREATININE RATIO 17.8 (6.6-38.0); CALCIUM 7.7 MG/DL (8.5-10.1); CHLORIDE 103 MMOL/L (99-107); CREATININE 0.73 MG/DL (0.40-0.90); GLUCOSE 120 MG/DL (70-104); MAGNESIUM 1.9 MG/DL (1.5-2.4); POTASSIUM 3.9 MMOL/L (3.5-5.1); SODIUM 140 MMOL/L (135-145); TOTAL CARBON DIOXIDE 28.3 MMOL/L (24-32); eGFR 81 ML/MIN
[2019-09-03 07:00] VITALS: BP 137/66
--- NOTE | 2019-09-03 07:06 | NUR ---
Patient in room [facility]. I have received report from KELSEA Piper and had the opportunity to ask questions and assume patient care.
[2019-09-03] MEDS: K and/or MAG REPLACEMENT MC SCH ×2 (08:00→20:00)
[2019-09-03] MEDS: quetiapine 100mg tablet PO SCH ×2 (09:13→20:37)
[2019-09-03] MEDS: levoTHYROXINE 100mcg tablet PO SCH (09:14)
[2019-09-03] MEDS: clonazePAM 0.5mg tablet PO PRN (09:15)
[2019-09-03] MEDS: CefTRIAXone/D5W-Rocephin 1gm 50 ML IV SCH (09:15)
[2019-09-03 11:00] VITALS: BP 112/70
--- NOTE | 2019-09-03 11:48 | NUR ---
Dr. Desir in to see patient. He is aware of patient's flushed red face and has no concerns. No new orders.
--- NOTE | 2019-09-03 12:45 | NUR ---
Patient melendrez cath was dc'd. Patient tolerated procedure well.
--- NOTE | 2019-09-03 16:21 | NUR ---
Patient up ambulating in room with a cup in hand back to bed. Cup visibly full with a clear pink tinged liquid. When asked if she needed help, patient stated, "oh no, I was just getting up to go pee." Appears patient removed suctioning tubing from NG tube and is holding NG tube in her hand, which is still secured to nose. Patient stated again," I'll go pee now." Educated patient that if she is filling her cup with water at the sink and drinking it then she may start to become nauseated or impede her recovery process as she has not passed gas and make it worse for herself. Per patient she states she has passed very little gas "just a little bit earlier." Let patient know that her cup full of pink tinged clear liquid is visible and patient states, "oh, I was just trying to melt my popsicle in the water." Educated patient that orders from Dr. Hurley is to have some ice chips and x2 popsicles and that having drinks of water or any other liquid is not ordered. Patient agreed and stated she would only have ice chips. Cup of liquid thrown out.
--- NOTE | 2019-09-03 18:49 | NUR ---
Problems reprioritized. Patient report given, questions answered & plan of care reviewed with KELSEA Kendall.
--- NOTE | 2019-09-03 18:50 | NUR ---
Patient in room [facility]. I have received report from RENATA ENAMORADO and had the opportunity to ask questions and assume patient care.
[2019-09-03 20:00] VITALS: BP 128/73
[2019-09-03] MEDS: prazosin 1mg capsule PO SCH (20:37)
[2019-09-03] MEDS: cloNIDine 0.1 mg tablet PO SCH (20:38)
[2019-09-03] MEDS: mirtazapine 15mg tablet PO SCH (20:38)
[2019-09-03] MEDS: lactobacillus rhamnosus 10,000 MMU CELLS/CAPSULE PO SCH (20:38)
[2019-09-04] VITALS: BP 117/55
[2019-09-04] MEDS: HYDROmorphone 1 mg/ml syringe IV PRN ×8 (01:21→21:28)
[2019-09-04] MEDS: ipratropium/albuterol 3ml nebule NEB SCH ×6 (03:26→23:00)
--- NOTE | 2019-09-04 06:15 | NUR ---
Problems reprioritized. Patient report given, questions answered & plan of care reviewed with RENATA ENAMORADO.
--- NOTE | 2019-09-04 06:18 | NUR ---
Patient in room [facility]. I have received report from KELSEA ANGEL and had the opportunity to ask questions and assume patient care.
[2019-09-04 07:00] VITALS: BP 119/52
[2019-09-04 07:05] LABS: BASOPHILS % (AUTO) 0.3 % (0-1); EOSINOPHILS % (AUTO) 0.4 % (0-6); HEMATOCRIT 32.3 % (35.0-45.0); LYMPHOCYTES # (AUTO) 1.3 X10'3 (1.1-4.8); LYMPHOCYTES % (AUTO) 12.6 % (21-51); MEAN CORPUSCULAR HEMOGLOBIN 32.3 PG (27.0-31.0); MEAN CORPUSCULAR HGB CONC 34.1 g/dL (33.0-36.5); MEAN CORPUSCULAR VOLUME 94.7 FL (78-98); MEAN PLATELET VOLUME 8.7 FL (7.4-10.4); MONOCYTES # (AUTO) 0.9 X10'3 (0-0.9); NEUTROPHILS # (AUTO) 8.2 X10'3 (1.8-7.7); NEUTROPHILS % (AUTO) 77.7 % (42-75); PLATELET COUNT 217 X10'3 (140-440); RED BLOOD COUNT 3.41 X10'6 (4.20-5.60); RED CELL DISTRIBUTION WIDTH 14.7 % (11.5-14.5); WHITE BLOOD COUNT 10.6 X10'3 (4.5-11.0)
[2019-09-04] MEDS: quetiapine 100mg tablet PO SCH ×2 (07:39→20:20)
[2019-09-04] MEDS: lactobacillus rhamnosus 10,000 MMU CELLS/CAPSULE PO SCH ×2 (07:39→20:21)
[2019-09-04] MEDS: levoTHYROXINE 100mcg tablet PO SCH (07:39)
[2019-09-04] MEDS: CefTRIAXone/D5W-Rocephin 1gm 50 ML IV SCH (07:39)
[2019-09-04 07:42] LABS: ALBUMIN 2.4 G/DL (3.4-5.0); ANION GAP 9 (8-16); BLOOD UREA NITROGEN 9 MG/DL (7-18); BUN/CREATININE RATIO 14.5 (6.6-38.0); CALCIUM 7.4 MG/DL (8.5-10.1); CHLORIDE 104 MMOL/L (99-107); CREATININE 0.62 MG/DL (0.40-0.90); GLUCOSE 108 MG/DL (70-104); MAGNESIUM 1.9 MG/DL (1.5-2.4); POTASSIUM 3.4 MMOL/L (3.5-5.1); SODIUM 140 MMOL/L (135-145); TOTAL CARBON DIOXIDE 27.5 MMOL/L (24-32); eGFR > 90 ML/MIN
[2019-09-04] MEDS: K and/or MAG REPLACEMENT MC SCH ×2 (08:00→20:36)
[2019-09-04] MEDS: normal saline 1000ml 1,000 ML IV SCH ×2 (09:32→22:23)
[2019-09-04 11:00] VITALS: BP 128/58
[2019-09-04] MEDS: clonazePAM 0.5mg tablet PO PRN ×2 (14:15→20:26)
[2019-09-04] MEDS: ondansetron/PF 4mg/2ml inj IV PRN (16:16)
--- NOTE | 2019-09-04 18:15 | NUR ---
Patient in room [facility]. I have received report from Marcy ENAMORADO and had the opportunity to ask questions and assume patient care.
--- NOTE | 2019-09-04 18:18 | NUR ---
Problems reprioritized. Patient report given, questions answered & plan of care reviewed with KELSEA Demarco.
[2019-09-04 18:30] VITALS: BP 126/64
[2019-09-04] MEDS: mirtazapine 15mg tablet PO SCH (20:17)
[2019-09-04] MEDS: prazosin 1mg capsule PO SCH (20:19)
[2019-09-04] MEDS: cloNIDine 0.1 mg tablet PO SCH (20:19)
--- NOTE | 2019-09-04 20:30 | NUR ---
Patient refused remeron,catapress and minipress last night.
[2019-09-05] VITALS (7 sets, daily range): BP systolic 98–134; BP diastolic 50–67
[2019-09-05] MEDS: ipratropium/albuterol 3ml nebule NEB SCH ×7 (00:14→23:44)
--- NOTE | 2019-09-05 00:15 | NUR ---
Patient lungs sound wet, and like there is mucus that needs to be coughed up. Patient just received a BR TX, but unable to cough anything up. Lungs still wet. Called MD and received order for 1 time lasix 40mg IVP, PBnp lab in am.
[2019-09-05] MEDS: HYDROmorphone 1 mg/ml syringe IV PRN ×2 (00:26→04:25)
[2019-09-05] MEDS ORDERED: furosemide 40mg/4ml inj IV ONE ×2 (00:35)
[2019-09-05] MEDS ORDERED: furosemide 40mg/4ml inj ONE (00:39)
[2019-09-05 05:55] LABS: BASOPHILS % (AUTO) 0.2 % (0-1); EOSINOPHILS % (AUTO) 0.1 % (0-6); HEMATOCRIT 33.6 % (35.0-45.0); HEMOGLOBIN 11.4 g/dl (12.0-16.0); LYMPHOCYTES # (AUTO) 0.6 X10'3 (1.1-4.8); LYMPHOCYTES % (AUTO) 6.8 % (21-51); MEAN CORPUSCULAR HEMOGLOBIN 32.1 PG (27.0-31.0); MEAN CORPUSCULAR HGB CONC 33.9 g/dL (33.0-36.5); MEAN CORPUSCULAR VOLUME 94.6 FL (78-98); MEAN PLATELET VOLUME 9.1 FL (7.4-10.4); MONOCYTES # (AUTO) 0.9 X10'3 (0-0.9); MONOCYTES % (AUTO) 9.6 % (2-12); NEUTROPHILS # (AUTO) 7.7 X10'3 (1.8-7.7); NEUTROPHILS % (AUTO) 83.3 % (42-75); PLATELET COUNT 226 X10'3 (140-440); RED BLOOD COUNT 3.55 X10'6 (4.20-5.60); RED CELL DISTRIBUTION WIDTH 14.5 % (11.5-14.5); WHITE BLOOD COUNT 9.3 X10'3 (4.5-11.0)
--- NOTE | 2019-09-05 06:00 | NUR ---
Patient in room [facility]. I have received report from KELSEA Demarco and had the opportunity to ask questions and assume patient care.
[2019-09-05 06:07] LABS: ALBUMIN 2.5 G/DL (3.4-5.0); ANION GAP 7 (8-16); BLOOD UREA NITROGEN 4 MG/DL (7-18); BUN/CREATININE RATIO 6.3 (6.6-38.0); CALCIUM 8.1 MG/DL (8.5-10.1); CHLORIDE 99 MMOL/L (99-107); CREATININE 0.64 MG/DL (0.40-0.90); GLUCOSE 121 MG/DL (70-104); MAGNESIUM 1.8 MG/DL (1.5-2.4); POTASSIUM 3.4 MMOL/L (3.5-5.1); SODIUM 135 MMOL/L (135-145); TOTAL CARBON DIOXIDE 29.5 MMOL/L (24-32); eGFR > 90 ML/MIN
--- NOTE | 2019-09-05 06:15 | NUR ---
Problems reprioritized. Patient report given, questions answered & plan of care reviewed with Kyrie ENAMORADO.
[2019-09-05] MEDS ORDERED: furosemide 10 MG/1 ML 10ml inj IV ONE (07:40)
[2019-09-05] MEDS ORDERED: magnesium Cl slow-release 64mg tablet PO PRN (07:45)
[2019-09-05] MEDS ORDERED: magnesium 4gm in 100ml NS 100 ML IV PRN (07:45)
[2019-09-05] MEDS ORDERED: potassium Cl 20 mEq SR tablet PO PRN (07:45)
[2019-09-05] MEDS ORDERED: magnesium 2GM in 50ml NS 50 ML IV PRN (07:45)
[2019-09-05] MEDS ORDERED: potassium CL 10mEq/100ml bag 100 ML IV PRN (07:45)
[2019-09-05] MEDS: quetiapine 100mg tablet PO SCH ×2 (07:59→20:32)
[2019-09-05] MEDS: levoTHYROXINE 100mcg tablet PO SCH (07:59)
[2019-09-05] MEDS: HYDROcodone/acetaminophen 5mg/325mg tablet PO PRN ×3 (08:00→17:40)
[2019-09-05] MEDS: lactobacillus rhamnosus 10,000 MMU CELLS/CAPSULE PO SCH ×2 (08:00→20:29)
[2019-09-05] MEDS: potassium Cl 20 mEq SR tablet PO PRN ×3 (08:01→21:51)
[2019-09-05] MEDS: CefTRIAXone/D5W-Rocephin 1gm 50 ML IV SCH (08:02)
[2019-09-05] MEDS: K and/or MAG REPLACEMENT MC SCH ×2 (08:02→20:00)
[2019-09-05] MEDS: normal saline 1000ml 1,000 ML IV SCH (08:23)
--- NOTE | 2019-09-05 10:07 | NUR ---
Patient is currently undergoing a rapid response for increasing SOB. Vs 96%, 109/66, 109HR, RR 20. Patient received CXR, and ABG's and are being reviewed my MD, current recommendation is deep nasotracheal suctioning to help alleviate thick mucus.
[2019-09-05 10:16] LABS: ABG BASE EXCESS 2.8 mmol/L (-2.0-3.0); ABG HCO3 28.6 mmol/L (22.0-26.0); ABG OXYGEN SATURATION 94.4 % (95-98); ABG PCO2 (T) 49.2 mmHg (35.0-45.0); ABG PH (T) 7.382 (7.350-7.450); ABG PO2 (T) 68.5 mmHg (83-108); ALLEN'S TEST Positive; FCOHb 0.6 % (0.5-1.5); FLOW 1 L/min; FMetHb 0.1 % (0.3-1.12); FO2Hb 93.7 % (94-100); TOTAL HEMOGLOBIN 11.5 G/dl (12.0-16.0)
[2019-09-05] MEDS ORDERED: metoclopramide 5 mg/ml inj IV ONE ×2 (12:35→14:30)
--- NOTE | 2019-09-05 18:00 | NUR ---
Problems reprioritized. Patient report given, questions answered & plan of care reviewed with Veronique RN.
[2019-09-05] MEDS ORDERED: ketorolac trometh. 30mg/ml inj. IM SCH (20:00)
[2019-09-05] MEDS: cloNIDine 0.1 mg tablet PO SCH (20:29)
[2019-09-05] MEDS: mirtazapine 15mg tablet PO SCH (20:29)
[2019-09-05] MEDS: prazosin 1mg capsule PO SCH ×2 (20:30→21:50)
[2019-09-05] MEDS: clonazePAM 0.5mg tablet PO PRN (20:36)
[2019-09-05] MEDS: furosemide 40mg/4ml inj IV SCH (21:50)
[2019-09-05] MEDS: ondansetron/PF 4mg/2ml inj IV PRN (22:05)
[2019-09-06] VITALS: BP 104/50
[2019-09-06] MEDS: ketorolac trometh. 30mg/ml inj. IV SCH ×4 (03:38→20:09)
[2019-09-06] MEDS: ipratropium/albuterol 3ml nebule NEB SCH ×6 (03:51→23:30)
[2019-09-06 05:28] LABS: BASOPHILS % (AUTO) 0.2 % (0-1); EOSINOPHILS # (AUTO) 0.1 X10'3 (0-0.9); EOSINOPHILS % (AUTO) 0.7 % (0-6); HEMATOCRIT 29.6 % (35.0-45.0); LYMPHOCYTES # (AUTO) 1.2 X10'3 (1.1-4.8); LYMPHOCYTES % (AUTO) 14.4 % (21-51); MEAN CORPUSCULAR HEMOGLOBIN 31.7 PG (27.0-31.0); MEAN CORPUSCULAR HGB CONC 33.9 g/dL (33.0-36.5); MEAN CORPUSCULAR VOLUME 93.6 FL (78-98); MEAN PLATELET VOLUME 8.7 FL (7.4-10.4); MONOCYTES # (AUTO) 0.8 X10'3 (0-0.9); MONOCYTES % (AUTO) 9.3 % (2-12); NEUTROPHILS # (AUTO) 6.3 X10'3 (1.8-7.7); NEUTROPHILS % (AUTO) 75.4 % (42-75); PLATELET COUNT 222 X10'3 (140-440); RED BLOOD COUNT 3.16 X10'6 (4.20-5.60); RED CELL DISTRIBUTION WIDTH 13.9 % (11.5-14.5); WHITE BLOOD COUNT 8.3 X10'3 (4.5-11.0)
[2019-09-06 05:32] LABS: ALBUMIN 2.2 G/DL (3.4-5.0); ANION GAP 8 (8-16); BLOOD UREA NITROGEN 8 MG/DL (7-18); BUN/CREATININE RATIO 11.6 (6.6-38.0); CHLORIDE 101 MMOL/L (99-107); CREATININE 0.69 MG/DL (0.40-0.90); GLUCOSE 132 MG/DL (70-104); MAGNESIUM 1.7 MG/DL (1.5-2.4); POTASSIUM 3.4 MMOL/L (3.5-5.1); SODIUM 140 MMOL/L (135-145); TOTAL CARBON DIOXIDE 31.3 MMOL/L (24-32); eGFR 86 ML/MIN
--- NOTE | 2019-09-06 06:00 | NUR ---
Patient in room [facility]. I have received report from KELSEA Piper and had the opportunity to ask questions and assume patient care.
[2019-09-06 07:00] VITALS: BP 106/59
[2019-09-06] MEDS: K and/or MAG REPLACEMENT MC SCH ×2 (08:00→20:00)
[2019-09-06 11:00] VITALS: BP 101/65
[2019-09-06] MEDS ORDERED: normal saline 1000ml 1,000 ML IV SCH (11:30)
[2019-09-06] MEDS: CefTRIAXone/D5W-Rocephin 1gm 50 ML IV SCH (11:58)
[2019-09-06] MEDS: HYDROmorphone inj. 0.5 MG/0.5 ML DISP.SYRIN IV PRN (11:58)
[2019-09-06] MEDS: levoTHYROXINE 100mcg tablet PO SCH (14:27)
[2019-09-06] MEDS: lactobacillus rhamnosus 10,000 MMU CELLS/CAPSULE PO SCH ×2 (14:27→20:10)
[2019-09-06] MEDS: potassium Cl 20 mEq SR tablet PO PRN ×2 (14:27→20:10)
[2019-09-06] MEDS: quetiapine 100mg tablet PO SCH ×2 (14:27→21:52)
[2019-09-06] MEDS: furosemide 40mg/4ml inj IV SCH ×2 (14:28→20:09)
[2019-09-06] MEDS: clonazePAM 0.5mg tablet PO PRN (15:56)
[2019-09-06 18:00] VITALS: BP 131/55
--- NOTE | 2019-09-06 18:00 | NUR ---
Patient in room [facility]. I have received report from and had the opportunity to ask questions and assume patient care.Problems reprioritized. Patient report given, questions answered & plan of care reviewed with KELSEA Jones.
--- NOTE | 2019-09-06 18:52 | NUR ---
Patient in room [facility]. I have received report from Liana ENAMORADO and had the opportunity to ask questions and assume patient care.
[2019-09-06] MEDS: cloNIDine 0.1 mg tablet PO SCH (20:10)
[2019-09-06] MEDS: mirtazapine 15mg tablet PO SCH (20:10)
[2019-09-06] MEDS: prazosin 1mg capsule PO SCH (21:52)
[2019-09-06] MEDS ORDERED: ketorolac trometh. 30mg/ml inj. IV SCH (21:55)
[2019-09-06] MEDS: HYDROmorphone 1 mg/ml syringe IV PRN (23:06)
[2019-09-07] MEDS: ketorolac trometh. 30mg/ml inj. IV SCH (02:19)
[2019-09-07] MEDS: ipratropium/albuterol 3ml nebule NEB SCH ×7 (03:09→23:45)
[2019-09-07] MEDS: HYDROmorphone 1 mg/ml syringe IV PRN ×4 (05:12→20:38)
[2019-09-07 05:53] LABS: BASOPHILS % (AUTO) 0.6 % (0-1); EOSINOPHILS # (AUTO) 0.1 X10'3 (0-0.9); EOSINOPHILS % (AUTO) 0.8 % (0-6); HEMATOCRIT 28.3 % (35.0-45.0); HEMOGLOBIN 9.7 g/dl (12.0-16.0); LYMPHOCYTES # (AUTO) 1.3 X10'3 (1.1-4.8); LYMPHOCYTES % (AUTO) 17.6 % (21-51); MEAN CORPUSCULAR HEMOGLOBIN 32.1 PG (27.0-31.0); MEAN CORPUSCULAR HGB CONC 34.4 g/dL (33.0-36.5); MEAN CORPUSCULAR VOLUME 93.3 FL (78-98); MEAN PLATELET VOLUME 8.8 FL (7.4-10.4); MONOCYTES # (AUTO) 0.6 X10'3 (0-0.9); MONOCYTES % (AUTO) 7.7 % (2-12); NEUTROPHILS # (AUTO) 5.5 X10'3 (1.8-7.7); NEUTROPHILS % (AUTO) 73.3 % (42-75); PLATELET COUNT 236 X10'3 (140-440); RED BLOOD COUNT 3.03 X10'6 (4.20-5.60); RED CELL DISTRIBUTION WIDTH 14.2 % (11.5-14.5); WHITE BLOOD COUNT 7.5 X10'3 (4.5-11.0)
[2019-09-07 06:18] LABS: ALBUMIN 1.9 G/DL (3.4-5.0); ANION GAP 8 (8-16); BLOOD UREA NITROGEN 8 MG/DL (7-18); BUN/CREATININE RATIO 12.5 (6.6-38.0); CALCIUM 7.7 MG/DL (8.5-10.1); CHLORIDE 103 MMOL/L (99-107); CREATININE 0.64 MG/DL (0.40-0.90); GLUCOSE 113 MG/DL (70-104); MAGNESIUM 1.7 MG/DL (1.5-2.4); POTASSIUM 3.6 MMOL/L (3.5-5.1); SODIUM 143 MMOL/L (135-145); TOTAL CARBON DIOXIDE 31.6 MMOL/L (24-32); eGFR > 90 ML/MIN
--- NOTE | 2019-09-07 06:28 | NUR ---
Problems reprioritized. Patient report given, questions answered & plan of care reviewed with Aminah ENAMORADO. Patient was complaining of pain and medication was administered per MD order.
[2019-09-07 07:00] VITALS: BP 112/55
[2019-09-07] MEDS: quetiapine 100mg tablet PO SCH ×2 (07:49→22:02)
[2019-09-07] MEDS: levoTHYROXINE 100mcg tablet PO SCH (07:49)
[2019-09-07] MEDS: furosemide 40mg/4ml inj IV SCH ×2 (07:50→20:12)
[2019-09-07] MEDS: CefTRIAXone/D5W-Rocephin 1gm 50 ML IV SCH (07:50)
[2019-09-07] MEDS: lactobacillus rhamnosus 10,000 MMU CELLS/CAPSULE PO SCH ×2 (07:50→20:12)
[2019-09-07] MEDS: K and/or MAG REPLACEMENT MC SCH ×2 (08:00→20:00)
[2019-09-07] MEDS: clonazePAM 0.5mg tablet PO PRN ×2 (10:26→20:10)
[2019-09-07] MEDS: HYDROcodone/acetaminophen 5mg/325mg tablet PO PRN ×2 (10:30→17:41)
[2019-09-07 12:28] VITALS: BP 128/63
--- NOTE | 2019-09-07 14:43 | NUR ---
Initial: Pt admit with SBO. Pt s/p laparoscopic lysis of adhesions on 09/02. Pt previously NPO with post-op ileus and NG tube in place however NG tube has been discontinued. PO diet has been advanced from clear liquid to full liquid this morning and pt documented with 100% PO intake at dinner last night. Pt and SO seen at bedside. Pt endorses a good appetite and states she is tolerating liquid diet with no abdominal pain following PO intake. Pt reports she is passing some gas however is still without a BM since 08/31. Per MD notes pt may need TPN in the near future as pt hasn't fully recovered from surgery. Pt receiving PRN opiates and would likely benefit from opioid antagonist. Pt and SO provided with written and verbal irritable bowel nutrition therapy education and RD contact information. Pt denies food allergies and reports difficulty chewing and swallowing at times stating that sometimes food gets stuck in her throat, RD consulted ST for BSS. Will continue to follow closely. Recommendations: 1) Advance to heart healthy diet as medically indicated 2) Monitor need for ONS 3) Opioid antagonist per MD approval 4) Wt per rx 5) IF TPN, continuous 2:1 Clinimix-E with goal rate of 70 mL/hr x 24 hours with piggyback 180 mL 20% intralipids with goal rate of 15 mL/hr x 12 hours Addendum: 09/07/19 at [address] Amended: Links added.
--- NOTE | 2019-09-07 18:02 | NUR ---
ON 09/06/19 AT 1200 A 0.5mg IV dose of diluadid was administered to Amaya Cunningham but the administration was not saved and recorded on the EMAR. The medication was given in the newly placed IV in patients right wrist. Patient's blood pressure and respiratory rate were within normal limits for administration and no dilaudid was given previously this shift or for the remainder of the shift. Patient reported slight burning upon administration, ameliorated after the completion of flushing.
--- NOTE | 2019-09-07 18:27 | NUR ---
Problems reprioritized. Patient report given, questions answered & plan of care reviewed with Veronique RN.
[2019-09-07] MEDS: lactose-reduced food (Ensure Enlive) - 237ml bottle PO SCH (19:00)
[2019-09-07 19:30] VITALS: BP 138/54
[2019-09-07] MEDS: ondansetron/PF 4mg/2ml inj IV PRN (20:18)
[2019-09-07] MEDS: mirtazapine 15mg tablet PO SCH (21:00)
[2019-09-07] MEDS: prazosin 1mg capsule PO SCH (21:00)
[2019-09-07] MEDS: cloNIDine 0.1 mg tablet PO SCH (21:00)
[2019-09-08] VITALS: BP 133/66
[2019-09-08] MEDS: ipratropium/albuterol 3ml nebule NEB SCH ×5 (03:27→23:33)
[2019-09-08] MEDS: HYDROmorphone inj. 0.5 MG/0.5 ML DISP.SYRIN IV PRN ×5 (04:35→23:56)
[2019-09-08] MEDS: ondansetron/PF 4mg/2ml inj IV PRN (04:47)
[2019-09-08] MEDS: clonazePAM 0.5mg tablet PO PRN ×3 (05:41→23:49)
[2019-09-08 07:35] VITALS: BP 118/63
[2019-09-08] MEDS: K and/or MAG REPLACEMENT MC SCH ×2 (08:00→20:00)
[2019-09-08] MEDS: HYDROcodone/acetaminophen 5mg/325mg tablet PO PRN ×2 (08:10→13:11)
[2019-09-08] MEDS: levoTHYROXINE 100mcg tablet PO SCH (08:10)
[2019-09-08] MEDS: quetiapine 100mg tablet PO SCH ×2 (08:10→20:33)
[2019-09-08] MEDS: lactobacillus rhamnosus 10,000 MMU CELLS/CAPSULE PO SCH ×2 (08:10→20:30)
[2019-09-08] MEDS: furosemide 40mg/4ml inj IV SCH ×2 (08:10→20:26)
[2019-09-08] MEDS: lactose-reduced food (Ensure Enlive) - 237ml bottle PO SCH ×3 (08:14→18:00)
[2019-09-08 11:00] VITALS: BP 121/61
[2019-09-08] MEDS ORDERED: methylnaltrexone br 12mg/0.6ml inj***SubQ only SQ ONE (12:45)
--- NOTE | 2019-09-08 13:24 | NUR ---
Page to Respiratory ... Avtar Cunningham 346A : patient requesting treatment. looks like the 11am was missed next one @ 1500 thanks!
--- NOTE | 2019-09-08 14:51 | NUR ---
patient showered, linens changed. new dressing placed on abdomen.
--- NOTE | 2019-09-08 18:57 | NUR ---
Problems reprioritized. Patient report given, questions answered & plan of care reviewed with KELSEA Alonzo.
[2019-09-08 20:00] VITALS: BP 145/64
--- NOTE | 2019-09-08 20:00 | NUR ---
Patient stated that she had a bowel movement. tech said that there was nothing in the commode. Patient told me that she dumped her own commode. I told her that we needed to see her bowel movement. Addendum: 09/09/19 at 0100 by Clinton Martinez RN Amended: Links added.
[2019-09-08] MEDS: cloNIDine 0.1 mg tablet PO SCH (20:30)
[2019-09-08] MEDS: prazosin 1mg capsule PO SCH (20:30)
[2019-09-08] MEDS: mirtazapine 15mg tablet PO SCH (20:31)
[2019-09-08] MEDS: normal saline 500ml IV soln 500 ML IV SCH (23:45)
[2019-09-09] VITALS: BP 107/50
[2019-09-09] MEDS: ipratropium/albuterol 3ml nebule NEB SCH ×6 (03:39→23:00)
[2019-09-09] MEDS: HYDROcodone/acetaminophen 5mg/325mg tablet PO PRN ×3 (03:57→21:35)
--- NOTE | 2019-09-09 06:28 | NUR ---
Problems reprioritized. Patient report given, questions answered & plan of care reviewed with KELSEA Burr.
[2019-09-09] MEDS: lactobacillus rhamnosus 10,000 MMU CELLS/CAPSULE PO SCH ×2 (07:15→22:16)
[2019-09-09] MEDS: quetiapine 100mg tablet PO SCH ×2 (07:15→21:34)
[2019-09-09] MEDS: furosemide 40mg/4ml inj IV SCH ×2 (07:15→22:16)
[2019-09-09] MEDS: levoTHYROXINE 100mcg tablet PO SCH (07:15)
[2019-09-09] MEDS: HYDROmorphone inj. 0.5 MG/0.5 ML DISP.SYRIN IV PRN ×3 (07:16→17:57)
[2019-09-09 07:35] VITALS: BP 118/55
[2019-09-09] MEDS: K and/or MAG REPLACEMENT MC SCH ×2 (08:00→20:00)
[2019-09-09] MEDS: lactose-reduced food (Ensure Enlive) - 237ml bottle PO SCH ×3 (08:12→17:53)
[2019-09-09 12:25] VITALS: BP 116/65
[2019-09-09 13:44] LABS: BASOPHILS % (AUTO) 0.4 % (0-1); EOSINOPHILS # (AUTO) 0.1 X10'3 (0-0.9); HEMATOCRIT 38.7 % (35.0-45.0); HEMOGLOBIN 13.2 g/dl (12.0-16.0); LYMPHOCYTES # (AUTO) 1.4 X10'3 (1.1-4.8); LYMPHOCYTES % (AUTO) 21.5 % (21-51); MEAN CORPUSCULAR HEMOGLOBIN 31.8 PG (27.0-31.0); MEAN CORPUSCULAR HGB CONC 34.1 g/dL (33.0-36.5); MEAN CORPUSCULAR VOLUME 93.4 FL (78-98); MEAN PLATELET VOLUME 7.9 FL (7.4-10.4); MONOCYTES # (AUTO) 0.7 X10'3 (0-0.9); MONOCYTES % (AUTO) 10.4 % (2-12); NEUTROPHILS # (AUTO) 4.4 X10'3 (1.8-7.7); NEUTROPHILS % (AUTO) 66.7 % (42-75); PLATELET COUNT 383 X10'3 (140-440); RED BLOOD COUNT 4.14 X10'6 (4.20-5.60); RED CELL DISTRIBUTION WIDTH 14.4 % (11.5-14.5); WHITE BLOOD COUNT 6.6 X10'3 (4.5-11.0)
[2019-09-09] MEDS ORDERED: potassium CL 10mEq/100ml bag 100 ML IV PRN (14:55)
[2019-09-09] MEDS ORDERED: magnesium 2GM in 50ml NS 50 ML IV PRN (14:55)
[2019-09-09] MEDS ORDERED: potassium Cl 20 mEq SR tablet PO PRN ×2 (14:55)
[2019-09-09] MEDS ORDERED: magnesium Cl slow-release 64mg tablet PO PRN (14:55)
[2019-09-09] MEDS ORDERED: magnesium 4gm in 100ml NS 100 ML IV PRN (14:55)
[2019-09-09] MEDS: clonazePAM 0.5mg tablet PO PRN (15:27)
[2019-09-09] MEDS: ondansetron/PF 4mg/2ml inj IV PRN (16:04)
--- NOTE | 2019-09-09 17:26 | NUR ---
Reassessment: Pt s/p BSS with ST recs pureed food with thin liquids d/t pt with difficulty with regular solids. Diet order has been adjusted as such and pt documented with 50-75% PO intake likely closely meeting nutrient needs. Pt with Ensure Enlive ordered TID however documented that pt only consumed 25% x one. Pt seen at bedside reports she is drinking 100% of one Ensure a day despite three unopened Ensures at bedside. Pt states she dislikes the food she is receiving and is requesting salads. RD enforced diet order recommended by and encouraged PO intake of ONS if pt with poor PO intake of meals. Last documented BM 09/06 however pt reports still no BM since admit. Per MD notes pt likely with postoperative slow to return bowel function. Pt now receiving routine Relistor and requests prune juice with dinner tonight and q breakfast, d/w dietary. Pt reports she is ambulating and drinking water to assist with BM. Pt has RD contact information. Will continue to follow closely. Recommendations: 1) Advance to heart healthy diet as medically indicated 2) Monitor need for ONS 3) Routine opioid antagonist per MD 4) Prune juice q breakfast 5) Wt per rx 6) IF TPN, continuous 2:1 Clinimix-E with goal rate of 70 mL/hr x 24 hours with piggyback 180 mL 20% intralipids with goal rate of 15 mL/hr x 12 hours Addendum: 09/09/19 at [address] Amended: Links added.
[2019-09-09 18:00] VITALS: BP 124/81
--- NOTE | 2019-09-09 18:16 | NUR ---
Problems reprioritized. Patient report given, questions answered & plan of care reviewed with KELSEA Mccracken.
[2019-09-09] MEDS ORDERED: methylnaltrexone br 12mg/0.6ml inj***SubQ only SQ SCH (19:25)
[2019-09-09] MEDS ORDERED: HYDROmorphone inj. 0.5 MG/0.5 ML DISP.SYRIN IV PRN (19:25)
[2019-09-09] MEDS ORDERED: docusate sod 100mg capsule PO ONE (21:15)
[2019-09-09] MEDS: cloNIDine 0.1 mg tablet PO SCH (21:33)
[2019-09-09] MEDS: prazosin 1mg capsule PO SCH (21:34)
[2019-09-09] MEDS: mirtazapine 15mg tablet PO SCH (21:34)
[2019-09-10] VITALS: BP 115/58
[2019-09-10] MEDS: normal saline 500ml IV soln 500 ML IV SCH (00:29)
[2019-09-10] MEDS: ipratropium/albuterol 3ml nebule NEB SCH ×3 (02:54→11:00)
[2019-09-10 07:00] VITALS: BP 114/57
[2019-09-10] MEDS ORDERED: methylnaltrexone br 12mg/0.6ml inj***SubQ only SQ SCH (08:00)
[2019-09-10] MEDS: K and/or MAG REPLACEMENT MC SCH (08:00)
[2019-09-10] MEDS ORDERED: docusate sod 100mg capsule PO SCH (08:00)
[2019-09-10] MEDS: lactobacillus rhamnosus 10,000 MMU CELLS/CAPSULE PO SCH (08:31)
[2019-09-10] MEDS: levoTHYROXINE 100mcg tablet PO SCH (08:31)
[2019-09-10] MEDS: furosemide 40mg/4ml inj IV SCH (08:31)
[2019-09-10] MEDS: lactose-reduced food (Ensure Enlive) - 237ml bottle PO SCH (08:32)
[2019-09-10] MEDS: HYDROcodone/acetaminophen 5mg/325mg tablet PO PRN (08:32)
[2019-09-10] MEDS: quetiapine 100mg tablet PO SCH (08:32)
--- NOTE | 2019-09-10 09:28 | NUR ---
Pt. states MD Hurley told her she could go home today because she is passing gas, however pt. has very hypoactive BS and is distended. She has threaten to leave AMA. She is aware of her pt. rights and has also been reassured. MD El who is covering for Xavi is aware. He would like to round and further assess his patient before giving any orders. Pt. had 2 diets this AM- full liquid and pureed. Downgraded to full liquid only per nursing due to present status. Md will reevaluate at a later time.
[2019-09-10] MEDS ORDERED: DOCU100C40 PO (10:40)
[2019-09-10 11:37] VITALS: BP 95/57
[2019-09-10 12:01] VITALS: BP 123/68
--- NOTE | 2019-09-10 12:14 | NUR ---
PAGER ID: [phone] MESSAGE: Amaya [place] 346A No discharge orders in. Do you want this RN to write discharge orders? Francia [phone]
--- NOTE | 2019-09-10 12:47 | NUR ---
PAGER ID: [phone] MESSAGE: Amaya Cunningham 346A- need DISCHARGE [place] ORDER IN PLACE TO DISCHARGE. THANK YOU! TIERA HAS ROUND ON PT> AND OKED DC
--- NOTE | 2019-09-10 13:00 | NUR ---
PT DISCHARGED. REVIEWED DISCHARGE PAPERWORK AND MEDICATIONS WITH PT. IV DC'D, PRESSURE BANDAGE APPLIED, NO S/SX BLEEDING NOTED. PT. DID HAVE A LARGE SOFT BM THAT WAS VISUALIZED BY RN. PT. MIDLINE DIRECTOR HRIS BUT PT. REQUESTED BORDERED GAUZE TO COVER INCISION TO GET DRESSED. SHE LEFT WITH ALL OF HER BELONGINGS. SHE KNOWS TO F/U WITH HEATHER WITHIN 1 WEEK. DIET AND EXERCISE DISCUSSED WITH PT. ESCORTED OUT OF HOSPITAL WITH BELONGING TO GO HOME- BOYFRIEND/SPOUSE HERE TO GIVE HER A RIDE HOME. CM STATES HH NURSING WILL BE ARRANGED FOR PT.
== END 2019-09-10 13:15 | disposition home health service (06) | DRG 335 ==
LOC: ER 23:09 → ED HOLD 09-02 00:23 → SUR 3N 09-02 08:50 → PACU 09-02 19:23 → SUR 3N 09-02 20:40
PROVIDERS: ADMIT Internal Medicine; ATTEND Internal Medicine
PROC: 5A09357 Assistance with Respiratory Ventilation, Less than 24 Consecutive Hours, Continuous Positive Airway Pressure (ICD-10-PCS; 2019-09-02)
PROC: 0D9670Z Drainage of Stomach with Drainage Device, Via Natural or Artificial Opening (ICD-10-PCS; 2019-09-02)
PROC: 0DN80ZZ Release Small Intestine, Open Approach (ICD-10-PCS; principal; 2019-09-02 16:45)
DX: K56.50 Intestinal adhesions [bands], unspecified as to partial versus complete obstruction (principal); J96.20 Acute and chronic respiratory failure, unspecified whether with hypoxia or hypercapnia; N39.0 Urinary tract infection, site not specified; K91.89 Other postprocedural complications and disorders of digestive system; K46.9 Unspecified abdominal hernia without obstruction or gangrene; E78.5 Hyperlipidemia, unspecified; F41.8 Other specified anxiety disorders; Z90.710 Acquired absence of both cervix and uterus; E87.70 Fluid overload, unspecified; E03.9 Hypothyroidism, unspecified; F17.210 Nicotine dependence, cigarettes, uncomplicated; F43.10 Post-traumatic stress disorder, unspecified; I10 Essential (primary) hypertension; J43.9 Emphysema, unspecified; Z85.41 Personal history of malignant neoplasm of cervix uteri; Z90.49 Acquired absence of other specified parts of digestive tract; Z79.899 Other long term (current) drug therapy; Z79.890 Hormone replacement therapy; K56.7 Ileus, unspecified
CPT/HCPCS: 36415; 36600; 71045; 80048; 80053; 82803; 82948; 83735; 83880; 84443; 85018; 85025; 87081; 92508; 92616; 94002; 94640; 94667; 94668; 94760; 96374; 96375; 99285; A4618; A6258; A6449; A7000; G0378; J0131; J0694; J0696; J1170; J1720; J1885; J1940; J2001; J2175; J2212; J2250; J2270; J2405; J2704; J2710; J2765; J3010; J3475; J3490; J7030; J7040; J7120

== ENCOUNTER 2020-06-27 10:30 | Emergency (ER) | payer MEDICARE, MEDICAID ==
[~2020-06-27] VITALS: Ht 172.7 cm; Wt 72.0 kg
[~2020-06-27 10:30] MED LIST changes: +DOCU100C40 PO; -OXYGEN INH
[2020-06-27 11:22] LABS: BASOPHILS # (AUTO) 0.1 X10'3 (0-0.2); BASOPHILS % (AUTO) 0.8 % (0-1); EOSINOPHILS % (AUTO) 0.3 % (0-6); HEMOGLOBIN 14.1 g/dl (12.0-16.0); LYMPHOCYTES # (AUTO) 1.9 X10'3 (1.1-4.8); LYMPHOCYTES % (AUTO) 28.1 % (21-51); MEAN CORPUSCULAR HEMOGLOBIN 31.6 PG (27.0-31.0); MEAN CORPUSCULAR HGB CONC 33.4 g/dL (33.0-36.5); MEAN CORPUSCULAR VOLUME 94.4 FL (78-98); MEAN PLATELET VOLUME 8.7 FL (7.4-10.4); MONOCYTES # (AUTO) 0.4 X10'3 (0-0.9); MONOCYTES % (AUTO) 5.7 % (2-12); NEUTROPHILS # (AUTO) 4.5 X10'3 (1.8-7.7); NEUTROPHILS % (AUTO) 65.1 % (42-75); PLATELET COUNT 254 X10'3 (140-440); RED BLOOD COUNT 4.45 X10'6 (4.20-5.60); WHITE BLOOD COUNT 6.9 X10'3 (4.5-11.0)
--- NOTE | 2020-06-27 11:29 | NUR ---
dr. white at bedside.
[2020-06-27] MEDS ORDERED: pantoprazole 40 MG vial IV ONE (11:35)
[2020-06-27] MEDS ORDERED: ondansetron/PF 4mg/2ml inj IV ONE (11:35)
[2020-06-27] MEDS ORDERED: normal saline 1000ML IV soln IVB ONE (11:35)
[2020-06-27 11:36] LABS: ALANINE AMINOTRANSFERASE 19 U/L (12-78); ALBUMIN 3.6 G/DL (3.4-5.0); ALBUMIN/GLOBULIN RATIO 0.8 (1.1-1.5); ALKALINE PHOSPHATASE 121 IU/L (46-116); ANION GAP 3 (8-16); ASPARTATE AMINO TRANSFERASE 10 U/L (10-37); BILIRUBIN,TOTAL 0.3 MG/DL (0.1-1.0); BLOOD UREA NITROGEN 10 MG/DL (7-18); BUN/CREATININE RATIO 12.7 (6.6-38.0); CHLORIDE 104 MMOL/L (99-107); CREATININE 0.79 MG/DL (0.40-0.90); GLUCOSE 105 MG/DL (70-104); LIPASE 62 U/L (73-393); POTASSIUM 4.3 MMOL/L (3.5-5.1); SODIUM 141 MMOL/L (135-145); TOTAL CARBON DIOXIDE 33.6 MMOL/L (24-32); TOTAL PROTEIN 8.1 G/DL (6.4-8.2); eGFR 74 ML/MIN
[2020-06-27] MEDS: morphine 2 MG/ML inj. syringe IV PRN ×2 (12:22→13:44)
[2020-06-27 12:26] LABS: CLARITY,URINE SLIGHTLY CLOUDY (Clear); COLOR,URINE YELLOW (Yellow); GLUCOSE, URINE NEGATIVE (Neg); KETONES,URINE NEGATIVE (Neg); LEUKOCYTE ESTERASE ,URINE MODERATE (Neg); NITRITES, URINE POSITIVE (Neg); OCCULT BLOOD,URINE TRACE-LYSED (Neg); PROTEIN,URINE NEGATIVE (Neg); UROBILINOGEN,URINE 0.2 E.U/dL (0.2-1.0)
[2020-06-27 12:30] LABS: UA COLLECTION TYPE CLN CATCH MIDSTREAM
[2020-06-27 12:32] LABS: BACTERIA,URINE 4+ /HPF (Neg); SQUAMOUS EPITHELIAL CELL,UR MODERATE /LPF (FEW)
[2020-06-27 12:33] LABS: RBC,URINE 0-2 /HPF (0-2); TRANSITIONAL EPI CELLS,URINE FEW /HPF
[2020-06-27] MEDS ORDERED: NITR100C6 PO (14:42)
[2020-06-27 15:00] VITALS: BP 109/77
== END 2020-06-27 14:57 | disposition home or self-care (01) ==
LOC: ER 10:30
DX: N39.0 Urinary tract infection, site not specified (principal); K59.00 Constipation, unspecified; R10.13 Epigastric pain; E78.00 Pure hypercholesterolemia, unspecified; I10 Essential (primary) hypertension; J44.9 Chronic obstructive pulmonary disease, unspecified; F17.200 Nicotine dependence, unspecified, uncomplicated; Z56.0 Unemployment, unspecified; Z90.49 Acquired absence of other specified parts of digestive tract; Z90.710 Acquired absence of both cervix and uterus; Z98.890 Other specified postprocedural states; Z79.899 Other long term (current) drug therapy
CPT/HCPCS: 36415; 74022; 80053; 81001; 83690; 85025; 87077; 87088; 87186; 96361; 96374; 96375; 96376; 99284; C9113; J2270; J2405; J7030

== ENCOUNTER 2021-03-21 15:16 | Emergency (ER) | payer MEDICARE, MEDICAID ==
[~2021-03-21] VITALS: Ht 172.7 cm; Wt 67.6 kg
[~2021-03-21 15:16] MED LIST changes: +MIRT-88 PO; -MIRT30TA8 PO; +NITR100C6 PO
[2021-03-21 15:28] VITALS: BP 162/57
[2021-03-21 15:55] LABS: BASOPHILS % (AUTO) 0.5 % (0-1); EOSINOPHILS % (AUTO) 0.2 % (0-6); HEMATOCRIT 41.9 % (35.0-45.0); HEMOGLOBIN 14.3 g/dl (12.0-16.0); LYMPHOCYTES # (AUTO) 1.8 X10'3 (1.1-4.8); LYMPHOCYTES % (AUTO) 27.5 % (21-51); MEAN CORPUSCULAR HEMOGLOBIN 32.4 PG (27.0-31.0); MEAN CORPUSCULAR HGB CONC 34.2 g/dL (33.0-36.5); MEAN CORPUSCULAR VOLUME 94.8 FL (78-98); MEAN PLATELET VOLUME 8.7 FL (7.4-10.4); MONOCYTES # (AUTO) 0.4 X10'3 (0-0.9); MONOCYTES % (AUTO) 6.8 % (2-12); NEUTROPHILS # (AUTO) 4.2 X10'3 (1.8-7.7); PLATELET COUNT 263 X10'3 (140-440); RED BLOOD COUNT 4.42 X10'6 (4.20-5.60); RED CELL DISTRIBUTION WIDTH 14.6 % (11.5-14.5); WHITE BLOOD COUNT 6.4 X10'3 (4.5-11.0)
[2021-03-21 16:00] LABS: URINE HCG NEGATIVE (NEG)
[2021-03-21 16:07] LABS: CLARITY,URINE SLIGHTLY CLOUDY (Clear); COLOR,URINE YELLOW (Yellow); GLUCOSE, URINE NEGATIVE (Neg); KETONES,URINE NEGATIVE (Neg); LEUKOCYTE ESTERASE ,URINE SMALL (Neg); NITRITES, URINE NEGATIVE (Neg); OCCULT BLOOD,URINE NEGATIVE (Neg); PH,URINE 7.5 (4.8-8.0); PROTEIN,URINE NEGATIVE (Neg); UA COLLECTION TYPE CLN CATCH MIDSTREAM; UROBILINOGEN,URINE 0.2 E.U/dL (0.2-1.0)
[2021-03-21 16:14] LABS: SQUAMOUS EPITHELIAL CELL,UR MODERATE /LPF (FEW)
[2021-03-21 16:15] LABS: BACTERIA,URINE FEW /HPF (Neg); WBC,URINE 20-30 /HPF (0-4)
[2021-03-21 16:21] LABS: ALANINE AMINOTRANSFERASE 18 U/L (12-78); ALBUMIN 3.9 G/DL (3.4-5.0); ALBUMIN/GLOBULIN RATIO 0.9 (1.1-1.5); ALKALINE PHOSPHATASE 115 IU/L (46-116); AMYLASE 36 U/L (25-115); ANION GAP 11 (8-16); ASPARTATE AMINO TRANSFERASE 17 U/L (10-37); BILIRUBIN,TOTAL 0.2 MG/DL (0.1-1.0); BLOOD UREA NITROGEN 7 MG/DL (7-18); BUN/CREATININE RATIO 8.8 (6.6-38.0); CALCIUM 8.9 MG/DL (8.5-10.1); CHLORIDE 100 MMOL/L (99-107); GLUCOSE 100 MG/DL (70-104); LIPASE 67 U/L (73-393); SODIUM 139 MMOL/L (135-145); TOTAL CARBON DIOXIDE 28.4 MMOL/L (24-32); TOTAL PROTEIN 8.2 G/DL (6.4-8.2); eGFR 72 ML/MIN
== END 2021-03-21 20:10 | disposition left against medical advice (07) ==
LOC: ER 15:17
DX: R10.9 Unspecified abdominal pain (principal); Z53.21 Procedure and treatment not carried out due to patient leaving prior to being seen by health care provider
CPT/HCPCS: 36415; 80053; 81001; 81025; 82150; 83690; 85025; 87088

== ENCOUNTER 2021-04-03 09:43 | Emergency (ER) | payer MEDICARE, MEDICAID ==
[~2021-04-03] VITALS: Ht 172.7 cm; Wt 67.5 kg
[2021-04-03 10:45] LABS: BASOPHILS % (AUTO) 0.5 % (0-1); EOSINOPHILS % (AUTO) 0.2 % (0-6); HEMATOCRIT 43.4 % (35.0-45.0); HEMOGLOBIN 14.6 g/dl (12.0-16.0); LYMPHOCYTES # (AUTO) 2.4 X10'3 (1.1-4.8); LYMPHOCYTES % (AUTO) 32.2 % (21-51); MEAN CORPUSCULAR HEMOGLOBIN 31.8 PG (27.0-31.0); MEAN CORPUSCULAR HGB CONC 33.5 g/dL (33.0-36.5); MONOCYTES # (AUTO) 0.5 X10'3 (0-0.9); MONOCYTES % (AUTO) 6.3 % (2-12); NEUTROPHILS # (AUTO) 4.6 X10'3 (1.8-7.7); NEUTROPHILS % (AUTO) 60.8 % (42-75); PLATELET COUNT 314 X10'3 (140-440); RED BLOOD COUNT 4.58 X10'6 (4.20-5.60); RED CELL DISTRIBUTION WIDTH 14.4 % (11.5-14.5); WHITE BLOOD COUNT 7.5 X10'3 (4.5-11.0)
[2021-04-03 10:46] LABS: ALANINE AMINOTRANSFERASE 28 U/L (12-78); ALBUMIN/GLOBULIN RATIO 0.8 (1.1-1.5); ALKALINE PHOSPHATASE 139 IU/L (46-116); AMYLASE 33 U/L (25-115); ANION GAP 7 (8-16); BILIRUBIN,TOTAL 0.2 MG/DL (0.1-1.0); BLOOD UREA NITROGEN 7 MG/DL (7-18); BUN/CREATININE RATIO 8.6 (6.6-38.0); CALCIUM 9.3 MG/DL (8.5-10.1); CHLORIDE 105 MMOL/L (99-107); CREATININE 0.81 MG/DL (0.40-0.90); GLUCOSE 105 MG/DL (70-104); LIPASE 140 U/L (73-393); POTASSIUM 4.4 MMOL/L (3.5-5.1); SODIUM 143 MMOL/L (135-145); TOTAL CARBON DIOXIDE 30.6 MMOL/L (24-32); TOTAL PROTEIN 8.8 G/DL (6.4-8.2); eGFR 71 ML/MIN
[2021-04-03 10:52] LABS: ASPARTATE AMINO TRANSFERASE 15 U/L (10-37)
[2021-04-03 13:06] VITALS: BP 136/94
[2021-04-03] MEDS ORDERED: fentaNYL/PF 50MCG/1 ML 2ML syringe IV ONE (13:40)
[2021-04-03 14:30] LABS: CLARITY,URINE SLIGHTLY CLOUDY (Clear); COLOR,URINE YELLOW (Yellow); GLUCOSE, URINE NEGATIVE (Neg); KETONES,URINE NEGATIVE (Neg); LEUKOCYTE ESTERASE ,URINE MODERATE (Neg); NITRITES, URINE NEGATIVE (Neg); OCCULT BLOOD,URINE NEGATIVE (Neg); PROTEIN,URINE NEGATIVE (Neg); UROBILINOGEN,URINE 0.2 E.U/dL (0.2-1.0)
[2021-04-03 14:43] LABS: URINE HCG NEGATIVE (NEG)
[2021-04-03 14:59] LABS: UA COLLECTION TYPE CLN CATCH MIDSTREAM
[2021-04-03 15:02] LABS: BACTERIA,URINE 1+ /HPF (Neg); RBC,URINE 0-2 /HPF (0-2); SQUAMOUS EPITHELIAL CELL,UR FEW /LPF (FEW)
[2021-04-03] MEDS ORDERED: LACT10SO3 PO (15:31)
== END 2021-04-03 15:42 | disposition home or self-care (01) ==
LOC: ER 09:43
DX: K59.00 Constipation, unspecified (principal); R14.0 Abdominal distension (gaseous); R11.2 Nausea with vomiting, unspecified; K57.92 Diverticulitis of intestine, part unspecified, without perforation or abscess without bleeding; R10.84 Generalized abdominal pain; E78.00 Pure hypercholesterolemia, unspecified; I10 Essential (primary) hypertension; J43.9 Emphysema, unspecified; F41.9 Anxiety disorder, unspecified; F32.9 Major depressive disorder, single episode, unspecified; Z90.89 Acquired absence of other organs; Z90.49 Acquired absence of other specified parts of digestive tract; Z90.710 Acquired absence of both cervix and uterus; Z56.0 Unemployment, unspecified; Z85.41 Personal history of malignant neoplasm of cervix uteri; Z88.5 Allergy status to narcotic agent; Z79.899 Other long term (current) drug therapy
CPT/HCPCS: 36415; 74176; 80053; 81001; 81025; 82150; 83690; 85025; 87088; 96374; 99284; J3010

== ENCOUNTER 2021-06-22 14:25 | Emergency (ER) | payer MEDICARE, MEDICAID ==
[~2021-06-22] VITALS: Ht 172.7 cm; Wt 68.2 kg
[~2021-06-22 14:25] MED LIST changes: +LACT10SO3 PO
[2021-06-22 16:15] LABS: BASOPHILS % (AUTO) 0.3 % (0-1); EOSINOPHILS % (AUTO) 0.6 % (0-6); HEMATOCRIT 37.9 % (35.0-45.0); HEMOGLOBIN 13.1 g/dl (12.0-16.0); LYMPHOCYTES # (AUTO) 1.5 X10'3 (1.1-4.8); LYMPHOCYTES % (AUTO) 18.5 % (21-51); MEAN CORPUSCULAR HEMOGLOBIN 32.3 PG (27.0-31.0); MEAN CORPUSCULAR HGB CONC 34.5 g/dL (33.0-36.5); MEAN CORPUSCULAR VOLUME 93.7 FL (78-98); MEAN PLATELET VOLUME 8.3 FL (7.4-10.4); MONOCYTES # (AUTO) 0.6 X10'3 (0-0.9); MONOCYTES % (AUTO) 7.5 % (2-12); NEUTROPHILS # (AUTO) 5.8 X10'3 (1.8-7.7); NEUTROPHILS % (AUTO) 73.1 % (42-75); PLATELET COUNT 281 X10'3 (140-440); RED BLOOD COUNT 4.05 X10'6 (4.20-5.60); RED CELL DISTRIBUTION WIDTH 14.6 % (11.5-14.5)
[2021-06-22 16:30] LABS: ALANINE AMINOTRANSFERASE 27 U/L (12-78); ALBUMIN 3.4 G/DL (3.4-5.0); ALBUMIN/GLOBULIN RATIO 0.8 (1.1-1.5); ALKALINE PHOSPHATASE 114 IU/L (46-116); ANION GAP 7 (8-16); ASPARTATE AMINO TRANSFERASE 29 U/L (10-37); BILIRUBIN,TOTAL 0.2 MG/DL (0.1-1.0); BLOOD UREA NITROGEN 8 MG/DL (7-18); BUN/CREATININE RATIO 10.5 (6.6-38.0); CALCIUM 8.8 MG/DL (8.5-10.1); CHLORIDE 106 MMOL/L (99-107); CREATININE 0.76 MG/DL (0.40-0.90); GLUCOSE 109 MG/DL (70-104); POTASSIUM 3.9 MMOL/L (3.5-5.1); SODIUM 146 MMOL/L (135-145); TOTAL CARBON DIOXIDE 33.5 MMOL/L (24-32); TOTAL PROTEIN 7.5 G/DL (6.4-8.2); eGFR 77 ML/MIN
[2021-06-22 16:31] VITALS: BP 135/67
[2021-06-22] MEDS ORDERED: ipratropium/albuterol 3ml nebule NEB ONE (17:20)
[2021-06-22] MEDS ORDERED: methylPREDNISolone sod succ 125mg/2ml vial IV ONE (17:20)
== END 2021-06-22 17:54 | disposition left against medical advice (07) ==
LOC: ER 14:26
DX: R06.02 Shortness of breath (principal); Z20.822 Contact with and (suspected) exposure to COVID-19; R07.89 Other chest pain; R05.9 Cough, unspecified; E78.00 Pure hypercholesterolemia, unspecified; I10 Essential (primary) hypertension; J43.9 Emphysema, unspecified; F41.9 Anxiety disorder, unspecified; F32.9 Major depressive disorder, single episode, unspecified; Z85.41 Personal history of malignant neoplasm of cervix uteri; Z90.89 Acquired absence of other organs; Z90.710 Acquired absence of both cervix and uterus; Z90.49 Acquired absence of other specified parts of digestive tract; Z98.890 Other specified postprocedural states; Z56.0 Unemployment, unspecified; Z88.5 Allergy status to narcotic agent; Z79.899 Other long term (current) drug therapy
CPT/HCPCS: 36415; 71045; 80053; 85025; 87635; 93005; 99285; C9803

== ENCOUNTER 2023-01-07 03:42 | Emergency (ER) | payer MEDICARE, MEDICAID ==
[~2023-01-07] VITALS: Ht 172.7 cm; Wt 64.5 kg
[2023-01-07] MEDS ORDERED: ketorolac tromethamine 15mg/ml inj. IM ONE (04:15)
[2023-01-07] MEDS ORDERED: ipratropium/albuterol 3ml nebule NEB ONE (04:15)
[2023-01-07 04:48] VITALS: BP 146/82
== END 2023-01-07 07:20 | disposition home or self-care (01) ==
LOC: ER 03:43
DX: M79.604 Pain in right leg (principal); M25.551 Pain in right hip; J44.9 Chronic obstructive pulmonary disease, unspecified
CPT/HCPCS: 73502; 94640; 96372; 99284; J1885; 94760

== ENCOUNTER 2023-08-09 09:52 | Emergency (ER) | payer MEDICARE, MEDICAID ==
[~2023-08-09] VITALS: Ht 172.7 cm; Wt 62.4 kg
[2023-08-09 09:55] VITALS: PULSE 102
[2023-08-09 10:32] LABS: BASOPHILS # (AUTO) 0.1 X10'3 (0-0.2); BASOPHILS % (AUTO) 0.7 % (0-1); EOSINOPHILS # (AUTO) 0.1 X10'3 (0-0.9); EOSINOPHILS % (AUTO) 0.8 % (0-6); HEMATOCRIT 49.5 % (35.0-45.0); HEMOGLOBIN 16.3 g/dl (12.0-16.0); LYMPHOCYTES # (AUTO) 2.2 X10'3 (1.1-4.8); LYMPHOCYTES % (AUTO) 22.3 % (21-51); MEAN CORPUSCULAR HEMOGLOBIN 32.2 PG (27.0-31.0); MEAN CORPUSCULAR VOLUME 97.3 FL (78-98); MEAN PLATELET VOLUME 8.7 FL (7.4-10.4); MONOCYTES # (AUTO) 0.8 X10'3 (0-0.9); MONOCYTES % (AUTO) 7.6 % (2-12); NEUTROPHILS # (AUTO) 6.8 X10'3 (1.8-7.7); NEUTROPHILS % (AUTO) 68.6 % (42-75); PLATELET COUNT 272 X10'3 (140-440); RED BLOOD COUNT 5.08 X10'6 (4.20-5.60); RED CELL DISTRIBUTION WIDTH 15.1 % (11.5-14.5)
[2023-08-09 10:49] LABS: ALANINE AMINOTRANSFERASE 24 U/L (12-78); ALBUMIN 4.2 G/DL (3.4-5.0); ALBUMIN/GLOBULIN RATIO 0.9 (1.1-1.5); ALKALINE PHOSPHATASE 137 IU/L (46-116); ANION GAP 8 (8-16); ASPARTATE AMINO TRANSFERASE 14 U/L (10-37); BILIRUBIN,TOTAL 0.6 MG/DL (0.1-1.0); BLOOD UREA NITROGEN 8 MG/DL (7-18); BUN/CREATININE RATIO 11.9 (10.0-20.0); CALCIUM 9.6 MG/DL (8.5-10.1); CHLORIDE 98 MMOL/L (99-107); CREATININE 0.67 MG/DL (0.40-0.90); GLUCOSE 111 MG/DL (70-104); POTASSIUM 3.8 MMOL/L (3.5-5.1); SODIUM 136 MMOL/L (135-145); TOTAL CARBON DIOXIDE 30.1 MMOL/L (24-32); eCRCL 81 ML/MIN; eGFR 88 ML/MIN
[2023-08-09 10:54] LABS: MAGNESIUM 2.4 MG/DL (1.5-2.4); PRO BRAIN NATRIURETIC PEPTIDE < 30 PG/ML (0-125)
[2023-08-09] MEDS ORDERED: CEFD300C3 PO (11:57)
[2023-08-09 12:09] VITALS: BP 130/68; RESP 18; TEMP 98.6; O2SAT 97
== END 2023-08-09 12:12 | disposition home or self-care (01) ==
LOC: ER 09:53
DX: J40 Bronchitis, not specified as acute or chronic (principal); Z20.822 Contact with and (suspected) exposure to COVID-19; E78.00 Pure hypercholesterolemia, unspecified; I10 Essential (primary) hypertension; G89.29 Other chronic pain; Z56.0 Unemployment, unspecified; Z79.899 Other long term (current) drug therapy; Z88.6 Allergy status to analgesic agent
CPT/HCPCS: 36415; 71045; 80053; 83735; 83880; 84484; 85025; 87502; 87503; 87811; 93005; 99285

== ENCOUNTER 2023-09-12 14:00 | Inpatient (IN) | payer MEDICARE, MEDICAID ==
[~2023-09-12] VITALS: Ht 172.7 cm; Wt 67.2 kg
[2023-09-12 14:56] LABS: BASOPHILS % (AUTO) 0.4 % (0-1); EOSINOPHILS % (AUTO) 0.4 % (0-6); HEMATOCRIT 45.2 % (35.0-45.0); HEMOGLOBIN 15.1 g/dl (12.0-16.0); LYMPHOCYTES # (AUTO) 0.8 X10'3 (1.1-4.8); LYMPHOCYTES % (AUTO) 10.5 % (21-51); MEAN CORPUSCULAR HEMOGLOBIN 31.9 PG (27.0-31.0); MEAN CORPUSCULAR HGB CONC 33.4 g/dL (33.0-36.5); MEAN CORPUSCULAR VOLUME 95.7 FL (78-98); MEAN PLATELET VOLUME 9.2 FL (7.4-10.4); MONOCYTES # (AUTO) 0.5 X10'3 (0-0.9); NEUTROPHILS # (AUTO) 5.9 X10'3 (1.8-7.7); NEUTROPHILS % (AUTO) 81.7 % (42-75); PLATELET COUNT 237 X10'3 (140-440); RED BLOOD COUNT 4.73 X10'6 (4.20-5.60); RED CELL DISTRIBUTION WIDTH 14.7 % (11.5-14.5); WHITE BLOOD COUNT 7.2 X10'3 (4.5-11.0)
[2023-09-12 15:05] LABS: ALANINE AMINOTRANSFERASE 24 U/L (12-78); ALBUMIN 3.8 G/DL (3.4-5.0); ALBUMIN/GLOBULIN RATIO 0.9 (1.1-1.5); ALKALINE PHOSPHATASE 138 IU/L (46-116); ANION GAP 6 (8-16); ASPARTATE AMINO TRANSFERASE 16 U/L (10-37); BILIRUBIN,TOTAL 0.4 MG/DL (0.1-1.0); BLOOD UREA NITROGEN 8 MG/DL (7-18); CALCIUM 9.7 MG/DL (8.5-10.1); CHLORIDE 96 MMOL/L (99-107); GLUCOSE 107 MG/DL (70-104); LIPASE 12 U/L (16-77); POTASSIUM 3.8 MMOL/L (3.5-5.1); SODIUM 140 MMOL/L (135-145); TOTAL PROTEIN 8.2 G/DL (6.4-8.2); eCRCL 70 ML/MIN; eGFR 72 ML/MIN
[2023-09-12 15:53] LABS: BILIRUBIN,URINE NEGATIVE (Neg); CLARITY,URINE CLEAR (Clear); COLOR,URINE YELLOW (Yellow); GLUCOSE, URINE NEGATIVE (Neg); KETONES,URINE NEGATIVE (Neg); LEUKOCYTE ESTERASE ,URINE MODERATE (Neg); NITRITES, URINE NEGATIVE (Neg); OCCULT BLOOD,URINE NEGATIVE (Neg); PH,URINE 6.5 (4.8-8.0); PROTEIN,URINE NEGATIVE (Neg); UROBILINOGEN,URINE 0.2 E.U/dL (0.2-1.0)
[2023-09-12 15:56] LABS: UA COLLECTION TYPE CLN CATCH MIDSTREAM
[2023-09-12] MEDS: bisacodyl 10mg suppository rectal RC STA (15:59)
[2023-09-12 16:00] LABS: BACTERIA,URINE FEW /HPF (Neg); MUCUS STRANDS NONE SEEN /LPF (Neg); RBC,URINE NONE SEEN /HPF (0-2); SQUAMOUS EPITHELIAL CELL,UR FEW /LPF (FEW)
[2023-09-12] MEDS: famotidine/PF 10 mg/ml inj IV ONE (16:02)
[2023-09-12] MEDS: LORazepam 2 mg/ml vial IV ONE (16:02)
[2023-09-12] MEDS: ondansetron/PF 4mg/2ml inj IV ONE (16:02)
[2023-09-12] MEDS: normal saline 1000ml 1,000 ML IV SCH ×2 (16:05→16:50)
[2023-09-12] MEDS: ketorolac trometh. 30mg/ml inj. IV ONE (16:10)
[2023-09-12 16:21] LABS: ETHANOL < 10 MG/DL (<10)
[2023-09-12] MEDS ORDERED: magnesium hydroxide 30ml (MOM) UD suspension PO PRN (16:50)
[2023-09-12] MEDS ORDERED: acetaminophen 325mg tablet PO PRN (16:50)
[2023-09-12] MEDS ORDERED: docusate sod 100mg capsule PO PRN (16:50)
[2023-09-12] MEDS ORDERED: HYDROmorphone/PF 0.2 MG/ML SYRINGE IV PRN (16:50)
[2023-09-12] MEDS ORDERED: magnesium Cl slow-release 64mg tablet PO PRN (16:50)
[2023-09-12] MEDS ORDERED: potassium Cl 40MEQ/1/2NS 520ml 520 ML IV PRN (16:50)
[2023-09-12] MEDS ORDERED: mag hydrox/Alum hydrox/simeth 30ml oral suspension PO PRN (16:50)
[2023-09-12] MEDS ORDERED: magnesium 4gm in 100ml NS 100 ML IV PRN (16:50)
[2023-09-12] MEDS ORDERED: ipratropium/albuterol 3ml nebule NEB PRN (16:50)
[2023-09-12] MEDS ORDERED: magnesium 2GM in 50ml NS 50 ML IV PRN (16:50)
[2023-09-12] MEDS ORDERED: ondansetron/PF 4mg/2ml inj IV PRN (16:50)
[2023-09-12] MEDS ORDERED: potassium Cl 20 mEq SR tablet PO PRN ×2 (16:50)
[2023-09-12] MEDS: nicotine 21mg patch - 24 hr TD ONE (17:05)
[2023-09-12] MEDS: ondansetron 4mg rapidly disintigrating tab PO ONE (17:05)
[2023-09-12 17:52] VITALS: PULSE 100; RESP 16; O2SAT 93
[2023-09-12 17:52] LABS: URINE AMPHETAMINE SCREEN NEGATIVE (Neg); URINE BARBITUATE SCREEN NEGATIVE (Neg); URINE BENZODIAZEPINES SCREEN POSITIVE (Neg); URINE CANNABINOID SCREEN NEGATIVE (Neg); URINE COCAINE SCREEN NEGATIVE (Neg); URINE METHADONE SCREEN NEGATIVE (Neg); URINE OPIATE SCREEN NEGATIVE (Neg); URINE PHENCYCLIDINE SCREEN NEGATIVE (Neg)
[2023-09-12] MEDS ORDERED: ipratropium/albuterol 3ml nebule NEB SCH (20:00)
[2023-09-12] MEDS: heparin, porcine 5000 units/ml vial SQ SCH (20:00)
[2023-09-12] MEDS: K and/or MAG REPLACEMENT MC SCH (20:05)
[2023-09-12] MEDS: LORazepam 2 mg/ml vial IV STA (21:40)
[2023-09-12] MEDS: HYDROmorphone inj. 0.5 MG/0.5 ML DISP.SYRIN IV PRN (21:41)
[2023-09-12] MEDS: quetiapine 100mg tablet PO SCH (21:47)
[2023-09-13 02:43] VITALS: BP 103/59; PULSE 98; RESP 16; TEMP 98; O2SAT 96
[2023-09-13] MEDS ORDERED: levoTHYROXINE 100mcg tablet PO SCH (07:00)
[2023-09-13] MEDS ORDERED: quetiapine 100mg tablet PO SCH (08:00)
== END 2023-09-13 11:04 | disposition left against medical advice (07) | DRG 390 ==
LOC: ER 14:01 → ED HOLD 16:55
PROVIDERS: ADMIT Family Medicine; ATTEND Family Medicine
DX: K56.609 Unspecified intestinal obstruction, unspecified as to partial versus complete obstruction (principal); E78.00 Pure hypercholesterolemia, unspecified; F17.210 Nicotine dependence, cigarettes, uncomplicated; I10 Essential (primary) hypertension; J43.9 Emphysema, unspecified; Z53.29 Procedure and treatment not carried out because of patient's decision for other reasons; Z85.41 Personal history of malignant neoplasm of cervix uteri; Z90.710 Acquired absence of both cervix and uterus; Z90.49 Acquired absence of other specified parts of digestive tract; Z88.5 Allergy status to narcotic agent; Z79.899 Other long term (current) drug therapy; R82.81 Pyuria; K59.00 Constipation, unspecified
CPT/HCPCS: 36415; 74018; 74176; 80053; 80305; 80320; 81001; 83690; 85025; 87088; 94760; 99285; G0378; J1170; J1644; J1885; J2060; J2405; J3490; J7030